=== PATIENT | female | born 1945 | race Caucasian/White ===

== ENCOUNTER 2020-12-09 13:00 | Inpatient (IN) | payer MEDICARE, OTHER ==
[~2020-12-09] VITALS: Ht 160 cm; Wt 51.2 kg
[2020-12-09 13:38] VITALS: BP 104/63
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
[2020-12-09] MEDS ORDERED: OMEP20CA16 PO (14:47)
[2020-12-09] MEDS ORDERED: QUET25TA5 PO (14:47)
[2020-12-09] MEDS ORDERED: MEMA10TA PO (14:47)
[2020-12-09] MEDS ORDERED: ATOR40TA59 PO (14:47)
[2020-12-09] MEDS ORDERED: GALA24CA7 PO (14:47)
[2020-12-09] MEDS ORDERED: ISOS30TA68 PO (14:47)
[2020-12-09 15:14] VITALS: BP 108/65
--- NOTE | 2020-12-09 16:21 | EKG ---
[address] [address] Test Date: 2020-12-09 Test Time: 16:12:50 Pat Name: FELIPE LAMB Department: Room: 111 A Gender: F [employer] Faculty: : [id number] Requested By: KAIT GARCIA Order Number: [id number] Reading MD: Measurements Intervals [place] Rate: 81 P: 90 [place]: 138 QRS: 115 QRSD: 68 T: 62 QT: 360 QTc: 419 Interpretive Statements SINUS RHYTHM ABNORMAL RIGHT AXIS DEVIATION LOW LIMB LEAD VOLTAGE QRS(T) CONTOUR ABNORMALITY CONSISTENT WITH ANTEROSEPTAL INFARCT AGE UNDETERMINED ABNORMAL ECG RI6.01 No previous ECG available for comparison
[2020-12-09 17:50] LABS: BASO % 1 % (0-3); EOS # 0.1 x10^3/uL (0.0-0.7); EOS % 2 % (0-3); HEMATOCRIT 44.3 % (36.0-47.0); HEMOGLOBIN 14.7 g/dL (12.0-15.5); LYMPH # 1.8 x10^3/uL (1.0-4.8); LYMPH % 31 % (24-48); MEAN CORPUSCULAR HEMOGLOBIN 30 pg (25-35); MEAN CORPUSCULAR HGB CONC 33 g/dL (31-37); MEAN CORPUSCULAR VOLUME 91 fL (79-100); MONO # 0.5 x10^3/uL (0.0-1.1); MONO % 9 % (0-9); NEUT # 3.3 x10^3uL (1.8-7.7); NEUT % 57 % (31-73); PLATELET COUNT 220 x10^3/uL (140-400); RED BLOOD COUNT 4.85 x10^6/uL (3.50-5.40); RED CELL DISTRIBUTION WIDTH 13.9 % (11.5-14.5); WHITE BLOOD COUNT 5.7 x10^3/uL (4.0-11.0)
[2020-12-09 17:51] LABS: BILIRUBIN,URINE NEG (NEG); CLARITY,URINE CLEAR; COLOR,URINE YELLOW; GLUCOSE,URINE NEG (NEG)
[2020-12-09 17:52] LABS: BACTERIA,URINE 0 /HPF (0-FEW); NITRITE,URINE NEG (NEG); RBC,URINE 0 /HPF (0-2); SQUAMOUS EPITHELIAL CELL,UR OCC /LPF
[2020-12-09 18:00] LABS: ALBUMIN 3.7 g/dL (3.4-5.0); ALBUMIN/GLOBULIN RATIO 1.2 (1.0-1.7); CALCIUM 8.7 mg/dL (8.5-10.1); GFR 54.3; MAGNESIUM 1.9 mg/dL (1.8-2.4); POTASSIUM 3.8 mmol/L (3.5-5.1); TOTAL BILIRUBIN 0.3 mg/dL (0.2-1.0); TOTAL PROTEIN 6.9 g/dL (6.4-8.2)
[2020-12-09 19:48] VITALS: BP 102/59
[2020-12-10 05:34] VITALS: BP 119/66
--- NOTE | 2020-12-10 12:02 | PN ---
DATE: 12/10/2020 ATTENDING PHYSICIAN: Dr. Garcia. SUBJECTIVE: The patient is confused. She is up and ambulating and wandering around. We have to have bed alarms available. The coronavirus swab is still pending. LABORATORY DATA: Hemoglobin is normal at 14.7 grams per deciliter, white count 5700. Electrolytes, BUN and creatinine all within normal range. Transaminases and liver panel was normal. OBJECTIVE: VITAL SIGNS: Blood pressure is 119/66. She is afebrile, heart rate and oxygen saturation adequate. HEENT: Head is without trauma. Pupils are reactive. Sclerae nonicteric. Oropharynx clear. NECK: Supple, no bruits. LUNGS: Clear. CARDIOVASCULAR: Showed regular heart tones. No gallops. ABDOMEN: Soft. EXTREMITIES: Without edema. NEUROLOGIC: Profound confusion. She has been wandering around. She has no insight. ASSESSMENT: 1. A 75-year-old female with profound dementia with associated agitation and behavior issues. 2. Chronic obstructive pulmonary disease. 3. Type 2 diabetes. 4. Hyperlipidemia. PLAN: 1. Await COVID-19 coronavirus swab. 2. Diet as tolerated. 3. Transfer to the [facility] Unit when the coronavirus swab is available. KAIT GARCIA MD DR: DENNISE/eli JOB#: [id number] / [id number]
[2020-12-10 15:33] VITALS: BP 143/76
[2020-12-10] MEDS ORDERED: MEMANTINE 10 MG TABLET. PO SCH (21:00)
[2020-12-10] MEDS ORDERED: QUEtiapine 25 MG TABLET. PO SCH (21:00)
[2020-12-11 01:09] LABS: HEMOGLOBIN A1C 5.9 % (4.8-5.6)
[2020-12-11] MEDS ORDERED: PANTOPRAZOLE 40 MG TABLET. PO SCH (07:30)
--- NOTE | 2020-12-11 08:59 | DS ---
DATE OF DISCHARGE: 12/10/2020 ATTENDING PHYSICIAN: Dr. Garcia. FINAL DISCHARGE DIAGNOSES: 1. A 75-year-old female with profound dementia with agitation and behavioral issues. 2. Chronic obstructive pulmonary disease. 3. Type 2 diabetes. 4. Hyperlipidemia. HISTORY AND PHYSICAL: The patient is a 75-year-old female slated to go to the [facility]. She was admitted to the medical floor for screening of coronavirus infection. PHYSICAL EXAMINATION: Please see the dictated note. PERTINENT LABORATORY AND X-RAY STUDIES: Serology of coronavirus was negative. Hemoglobin stable at 14.7 g/dL with a white count of 5700. Electrolytes: BUN and creatinine all within normal range. Hemoglobin A1c was quite good at 5.9. Transaminases and lipid panel were unremarkable. COURSE IN THE HOSPITAL: The patient was admitted to the medical floor. Home meds were restarted. Diet was advanced. She kept wandering around. She was profoundly demented. We had to place bed alarms on. By the second hospital day, she was ambulating well. Her coronavirus swab was negative. She was discharged to the [facility]. Her home meds are unchanged, they include the following: She will continue her Lipitor, Razadyne, Imdur, Namenda, omeprazole, and Seroquel dose is unchanged. Her prognosis is fair. She was discharged from our hospital in stable condition with explicit instructions and followup care at the [facility]. KAIT GARCIA MD DR: DENNISE/eli JOB#: [id number] / [id number]
[2020-12-11] MEDS ORDERED: ATORVASTATIN CALCIUM 20 MG TABLET PO SCH (09:00)
[2020-12-11] MEDS ORDERED: ISOSORBIDE MONONITRATE ER 30 MG TAB.ER.24H PO SCH (09:00)
[2020-12-11] MEDS ORDERED: GALANTAMINE 24 MG PO SCH (09:00)
== END 2020-12-10 21:00 | DRG 191 ==
LOC: 1 SOUTH 13:00
PROVIDERS: ADMIT Hospitalist; ATTEND Hospitalist
DX: J44.9 Chronic obstructive pulmonary disease, unspecified (principal); F03.91 Unspecified dementia, unspecified severity, with behavioral disturbance; E78.5 Hyperlipidemia, unspecified; Z20.822 Contact with and (suspected) exposure to COVID-19; Z80.0 Family history of malignant neoplasm of digestive organs; Z85.038 Personal history of other malignant neoplasm of large intestine; Z87.891 Personal history of nicotine dependence; K21.9 Gastro-esophageal reflux disease without esophagitis; Z91.83 Wandering in diseases classified elsewhere; E11.51 Type 2 diabetes mellitus with diabetic peripheral angiopathy without gangrene; Z79.4 Long term (current) use of insulin
CPT/HCPCS: 36415; 80053; 80061; 81001; 82306; 82607; 83036; 83735; 84443; 85025; 85379; 86592; 87086; 93005; U0003

== ENCOUNTER 2020-12-10 21:00 | Inpatient (IN) | payer MEDICARE, OTHER ==
[~2020-12-10] VITALS: Ht 160 cm; Wt 51.4 kg
[~2020-12-10 21:00] MED LIST: ATOR40TA59 PO; GALA24CA7 PO; ISOS30TA68 PO; MEMA10TA PO; OMEP20CA16 PO; QUET25TA5 PO
[2020-12-10 22:42] VITALS: BP 112/79
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
[2020-12-10] MEDS ORDERED: METHYL SALICYLATE/MENTHOL TOPICAL OINTMENT 57GM TUBE. TP PRN (23:45)
[2020-12-10] MEDS ORDERED: MAG HYDROX/AL HYDROX/SIMETH 30 ML ORAL.SUSP PO PRN (23:45)
[2020-12-10] MEDS ORDERED: MAGNESIUM HYDROXIDE 2,400 MG/30 ML ORAL.SUSP. PO PRN (23:45)
[2020-12-11 06:07] VITALS: BP 119/58
[2020-12-11] MEDS: MEMANTINE 10 MG TABLET. PO SCH ×2 (08:33→20:34)
[2020-12-11] MEDS: ISOSORBIDE MONONITRATE ER 30 MG TAB.ER.24H PO SCH (08:33)
[2020-12-11] MEDS: PANTOPRAZOLE 40 MG TABLET. PO SCH (08:33)
[2020-12-11] MEDS: GALANTAMINE 24 MG PO SCH (09:00)
[2020-12-11 09:47] LABS: BASO % 0 % (0-3); EOS # 0.1 x10^3/uL (0.0-0.7); EOS % 2 % (0-3); HEMATOCRIT 44.4 % (36.0-47.0); HEMOGLOBIN 14.6 g/dL (12.0-15.5); LYMPH % 31 % (24-48); MEAN CORPUSCULAR HEMOGLOBIN 30 pg (25-35); MEAN CORPUSCULAR HGB CONC 33 g/dL (31-37); MEAN CORPUSCULAR VOLUME 92 fL (79-100); MONO # 0.5 x10^3/uL (0.0-1.1); MONO % 8 % (0-9); NEUT # 3.7 x10^3uL (1.8-7.7); NEUT % 59 % (31-73); PLATELET COUNT 204 x10^3/uL (140-400); RED BLOOD COUNT 4.85 x10^6/uL (3.50-5.40); RED CELL DISTRIBUTION WIDTH 14.2 % (11.5-14.5); WHITE BLOOD COUNT 6.4 x10^3/uL (4.0-11.0)
[2020-12-11 10:26] LABS: ALBUMIN 3.9 g/dL (3.4-5.0); ALBUMIN/GLOBULIN RATIO 1.2 (1.0-1.7); CREATININE 0.9 mg/dL (0.6-1.0); GFR 61.4; MAGNESIUM 2.3 mg/dL (1.8-2.4); POTASSIUM 3.6 mmol/L (3.5-5.1); TOTAL BILIRUBIN 0.7 mg/dL (0.2-1.0); TOTAL PROTEIN 7.2 g/dL (6.4-8.2)
[2020-12-11 16:10] VITALS: BP 115/60
[2020-12-11 16:34] LABS: THYROID STIM HORMONE (TSH) 1.614 uIU/mL (0.358-3.740)
--- NOTE | 2020-12-11 16:56 | NUR ---
Pt up wandering in halls. Pleasantly confused. Meds taken in pudding. Redirectable.
[2020-12-11] MEDS: ATORVASTATIN CALCIUM 20 MG TABLET PO SCH (20:35)
[2020-12-11] MEDS: QUEtiapine 25 MG TABLET. PO SCH (20:35)
[2020-12-11] MEDS ORDERED: MIRTAZAPINE 7.5 MG TABLET. PO SCH (21:00)
--- NOTE | 2020-12-11 21:06 | PDOC ---
Exam Note: Jaquan Note: Please also refer to the separate dictated note~for this date of service dictated separately.~Patient seen individually. Discussed the patient with Nursing staff reviewed the chart.~Reviewed interim history and current functioning. Reviewed vital signs,~Labs/ Radiology~and current medications noted below. Continue current treatment with the changes noted in the dictated addendum note Assessment: Vital Signs/I&O: Vital Signs Date Time Temp Pulse Resp B/P (MAP) Pulse Ox O2 Delivery O2 Flow Rate FiO2 12/11/20 16:10 98.0 78 18 115/60 (78) 97 Room Air Labs: Laboratory Tests Test 12/11/20 08:45 White Blood Count 6.4 x10^3/uL (4.0-11.0) Red Blood Count 4.85 x10^6/uL (3.50-5.40) Hemoglobin 14.6 g/dL (12.0-15.5) Hematocrit 44.4 % (36.0-47.0) Mean Corpuscular Volume 92 fL (79-100) Mean Corpuscular Hemoglobin 30 pg (25-35) Mean Corpuscular Hemoglobin Concent 33 g/dL (31-37) Red Cell Distribution Width 14.2 % (11.5-14.5) Platelet Count 204 x10^3/uL (140-400) Neutrophils (%) (Auto) 59 % (31-73) Lymphocytes (%) (Auto) 31 % (24-48) Monocytes (%) (Auto) 8 % (0-9) Eosinophils (%) (Auto) 2 % (0-3) Basophils (%) (Auto) 0 % (0-3) Neutrophils # (Auto) 3.7 x10^3uL (1.8-7.7) Lymphocytes # (Auto) 2.0 x10^3/uL (1.0-4.8) Monocytes # (Auto) 0.5 x10^3/uL (0.0-1.1) Eosinophils # (Auto) 0.1 x10^3/uL (0.0-0.7) Basophils # (Auto) 0.0 x10^3/uL (0.0-0.2) D-Dimer (Cass) 2.97 mg/L (0.00-0.50) H Sodium Level 145 mmol/L (136-145) Potassium Level 3.6 mmol/L (3.5-5.1) Chloride Level 107 mmol/L (98-107) Carbon Dioxide Level 29 mmol/L (21-32) Anion Gap 9 (6-14) Blood Urea Nitrogen 17 mg/dL (7-20) Creatinine 0.9 mg/dL (0.6-1.0) Estimated GFR (Cockcroft-Gault) 61.4 BUN/Creatinine Ratio 19 (6-20) Glucose Level 91 mg/dL (70-99) Calcium Level 9.0 mg/dL (8.5-10.1) Magnesium Level 2.3 mg/dL (1.8-2.4) Iron Level 107 ug/dL (50-170) Total Iron Binding Capacity 261 ug/dL (250-450) Iron Saturation 41 % (15-34) H Total Bilirubin 0.7 mg/dL (0.2-1.0) Aspartate Amino Transferase (AST) 26 U/L (15-37) Alanine Aminotransferase (ALT) 41 U/L (14-59) Alkaline Phosphatase 114 U/L (46-116) Total Protein 7.2 g/dL (6.4-8.2) Albumin 3.9 g/dL (3.4-5.0) Albumin/Globulin Ratio 1.2 (1.0-1.7) Triglycerides Level 69 mg/dL (0-150) Cholesterol Level 128 mg/dL (0-200) LDL Cholesterol, Calculated 60 mg/dL (0-100) VLDL Cholesterol, Calculated 13 mg/dL (0-40) Non-HDL Cholesterol Calculated 73 mg/dL (0-129) HDL Cholesterol 55 mg/dL (40-60) Cholesterol/HDL Ratio 2.0 Thyroid Stimulating Hormone (TSH) 1.614 uIU/mL (0.358-3.740) Current Medications: Meds: Current Medications Medications (Trade) Dose Ordered Sig/Ashish Route PRN Reason Start Time Stop Time Status Last Admin Dose Admin Olanzapine (ZyPREXA ZYDIS) 2.5 mg PRN Q2HR PRN PO PSYCHOSIS 12/10/20 22:45 12/11/20 20:36 Galantamine Hydrobromide (Razadyne Er) 24 mg DAILY PO 12/11/20 09:00 12/11/20 09:00 Isosorbide Mononitrate (Imdur) 30 mg DAILY PO 12/11/20 09:00 12/11/20 08:33 Memantine (Namenda) 10 mg BID PO 12/11/20 09:00 12/11/20 20:34 Quetiapine Fumarate (SEROquel) 75 mg QHS PO 12/11/20 21:00 12/11/20 20:35 Atorvastatin Calcium (Lipitor) 40 mg QHS PO 12/11/20 21:00 12/11/20 20:35 Pantoprazole Sodium (Protonix) 40 mg DAILYAC PO 12/11/20 07:30 12/11/20 08:33 Mirtazapine (Remeron) 7.5 mg QHS PO 12/11/20 21:00 12/11/20 20:35 I have reviewed the current psychotropics carefully including drug interactions. Risk benefit ratio favors no change other than as noted in my dictated progress note. Diagnosis: Problems: (1) Major neurocognitive disorder (2) Dementia with behavioral disturbance ION NAVARRETE MD Dec 11, 2020 21:06
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
--- NOTE | 2020-12-11 21:38 | PN ---
DATE: 12/11/2020 PSYCHIATRIC PROGRESS NOTE This note covers elements not covered in my initial note 12/11/2020. SUBJECTIVE: I met with the patient evening of 12/11/2020 on telehealth rounds. Discussed with YELITZA Dailey. The patient slept 5-1/4 hours previous night, was anxious, restless, remains confused. She is totally oblivious of her surroundings. REVIEW OF SYSTEMS: No CV, , pulmonary, eye, ENT system symptoms on review. Reliability poor. MENTAL STATUS EXAM: Oriented to herself. Insight, judgment, recent and remote memory, attention, concentration, fund of knowledge poor, consistent with her diagnosis. IMPRESSION: Major neurocognitive disorder, Alzheimer, vascular with delusion, depression, behavioral disturbance; anxiety disorder, unspecified; impulse control disorder, unspecified. Rest unchanged from initial note. PLAN: Continue current psychotropic. Start Remeron 7.5 mg p.o. at bedtime for insomnia and trazodone 50 mg at bedtime p.r.n., may repeat x 1 for insomnia. May consider adding an SSRI agent, perhaps Zoloft and adjusting Seroquel as clinically indicated. MAN Mariusz NAVARRETE MD DR: SHARA/eli JOB#: [id number] / [id number]
[2020-12-11] MEDS: traZODone 50 MG TABLET. PO PRN ×2 (22:32→23:45)
--- NOTE | 2020-12-11 23:26 | NUR ---
Pt highly disorganized this evening. Restless, wandering and intrusive. Compliant with whole medications. PRN Zydis and Trazodone administered with little effect. Pt currently restless in bed repeatedly setting off alarm. Will continue to monitor.
[2020-12-12 00:11] LABS: THYROXINE 7.3 ug/dL (4.5-12.0)
[2020-12-12 03:06] LABS: HEMOGLOBIN A1C 5.8 % (4.8-5.6)
[2020-12-12 06:34] VITALS: BP 137/72
[2020-12-12] MEDS: ISOSORBIDE MONONITRATE ER 30 MG TAB.ER.24H PO SCH (07:54)
[2020-12-12] MEDS: MEMANTINE 10 MG TABLET. PO SCH ×2 (07:54→20:26)
[2020-12-12] MEDS: PANTOPRAZOLE 40 MG TABLET. PO SCH (07:54)
[2020-12-12] MEDS: GALANTAMINE 24 MG PO SCH (07:54)
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
--- NOTE | 2020-12-12 13:12 | NUR ---
PATIENT IS ON A HALLWAY THIS AM UPON ASSESSMENT, RESTLESS, WONDERING TO OTHER RESIDENTS ROOMS, CONFUSED BUT WAS EASY TO REDIRECT. PATIENT TOOK HER MEDS CRUSHED IN PUDDING, PATIENT TOOK A SHOWER WITH ASSIST X1. PATIENT IS CURRENTLY ASLEEP IN A BED.
[2020-12-12 15:20] VITALS: BP 94/71
[2020-12-12] MEDS: ATORVASTATIN CALCIUM 20 MG TABLET PO SCH (20:26)
[2020-12-12] MEDS: QUEtiapine 25 MG TABLET. PO SCH (20:26)
[2020-12-12] MEDS: traZODone 50 MG TABLET. PO PRN (20:28)
[2020-12-12] MEDS: MIRTAZAPINE 15 MG TABLET PO SCH (20:28)
--- NOTE | 2020-12-12 20:45 | EKG ---
[address] [address] Test Date: 2020-12-11 Test Time: 05:52:45 Pat Name: FELIPE LAMB Department: Room: [address] [place] [address] Gender: F [employer]: : 1945 Requested By: ION NAVARRETE Order Number: [id number] Reading MD: Measurements Intervals [place] Rate: 60 P: AR: QRS: 86 QRSD: 74 T: 62 QT: 412 QTc: 412 Interpretive Statements ATRIAL FLUTTER LOW LIMB LEAD VOLTAGE QRS(T) CONTOUR ABNORMALITY CONSISTENT WITH ANTEROSEPTAL INFARCT AGE UNDETERMINED ABNORMAL ECG RI6.01 Compared to ECG 12/09/2020 16:12:50 Sinus rhythm no longer present Right-axis deviation no longer present Myocardial infarct finding still present
--- NOTE | 2020-12-12 21:35 | PDOC ---
Exam Note: Jaquan Note: Please also refer to the separate dictated note~for this date of service dictated separately.~Patient seen individually. Discussed the patient with Nursing staff reviewed the chart.~Reviewed interim history and current functioning. Reviewed vital signs,~Labs/ Radiology~and current medications noted below. Continue current treatment with the changes noted in the dictated addendum note Assessment: Vital Signs/I&O: Vital Signs Date Time Temp Pulse Resp B/P (MAP) Pulse Ox O2 Delivery O2 Flow Rate FiO2 12/12/20 15:20 97.4 87 16 94/71 (79) 95 12/12/20 06:34 Room Air I & O 12/11/20 12/11/20 12/12/20 15:00 23:00 07:00 Intake Total 560 ml 120 ml 100 ml Balance 560 ml 120 ml 100 ml Current Medications: Meds: Current Medications Medications (Trade) Dose Ordered Sig/Ashish Route PRN Reason Start Time Stop Time Status Last Admin Dose Admin Mirtazapine (Remeron) 15 mg QHS PO 12/12/20 21:00 12/12/20 20:28 I have reviewed the current psychotropics carefully including drug interactions. Risk benefit ratio favors no change other than as noted in my dictated progress note. Diagnosis: Problems: (1) Dementia with behavioral disturbance (2) Major neurocognitive disorder (3) Dementia in Alzheimer's disease with depression (4) Dementia in Alzheimer's disease with delusions (5) Dementia, vascular, with depression (6) Dementia, vascular, with delusions (7) Anxiety disorder, unspecified (8) Impulse control disorder, unspecified ION NAVARRETE MD Dec 12, 2020 21:35
--- NOTE | 2020-12-12 23:57 | NUR ---
Pt wandering unit this evening. Continues to be restless, intrusive and disorganized. Pt pleasant when approached, A/O to name only. Compliant with crushed medications. No agitation or aggression.
[2020-12-13 06:22] VITALS: BP 110/74
[2020-12-13] MEDS: PANTOPRAZOLE 40 MG TABLET. PO SCH (07:41)
[2020-12-13] MEDS: MEMANTINE 10 MG TABLET. PO SCH ×2 (07:42→20:22)
[2020-12-13] MEDS: GALANTAMINE 24 MG PO SCH (07:42)
[2020-12-13] MEDS: ISOSORBIDE MONONITRATE ER 30 MG TAB.ER.24H PO SCH (07:42)
--- NOTE | 2020-12-13 08:53 | PDOC ---
Exam Note: Jaquan Note: This note is a late entry for 12/12/2020 covers elements not covered in my initial note. Subjective: The patient was seen face to face in the morning of 12/12/2020 for a treatment team meeting with Sangita Martin, Edwige Hartley and Melissa (social science manager), Lashonda Jackson, activity therapy and Jessica TORRE, reviewed the chart. The patients daughter Alma also attended the meeting. The patient slept 2-3/4 hours previous night. Overall she remains confused, anxious, restless, distractible. Her daughter gave a very detailed history of a progressive memory loss and daughter has been caring for her at the home along with help from her sister but now it appears is not feasible given the extent of the patients agitation and dementia. They live in the [facility] and looking for nursing placement but have to secure appropriate funding. Review of Systems: No CV, , pulmonary, eye, ENT system symptoms on review. Reliability poor. Mental Status Exam: The patient is oriented to herself. Insight and judgment, recent and remote memory, attention and concentration, fund of knowledge is poor consistent with her diagnosis. Laboratory Data: Reviewed. Impression: Major neurocognitive disorder Alzheimer vascular with delusion, depression, behavioral disturbance. Anxiety disorder unspecified. Impulse control disorder unspecified. Plan: No change from initial note. She still is not sleeping well despite Remeron and trazodone. We will increase Remeron to 15 mg h.s. Continue Razadyne ER, Namenda along with Seroquel but we may split the Seroquel during the day and consider amitriptyline for insomnia if this persists despite adjustment in Remeron. I do not see a clear reason for using Depakote as a mood stabilizer for now but we will keep an open mind. Assessment: Vital Signs/I&O: Vital Signs Date Time Temp Pulse Resp B/P (MAP) Pulse Ox O2 Delivery O2 Flow Rate FiO2 12/13/20 07:42 71 110/74 12/13/20 06:22 97.5 16 94 12/12/20 06:34 Room Air I & O 12/12/20 12/12/20 12/13/20 15:00 23:00 07:00 Intake Total 540 ml 460 ml Balance 540 ml 460 ml Current Medications: Meds: Current Medications Medications (Trade) Dose Ordered Sig/Ashish Route PRN Reason Start Time Stop Time Status Last Admin Dose Admin Olanzapine (ZyPREXA ZYDIS) 2.5 mg PRN Q2HR PRN PO PSYCHOSIS 12/10/20 22:45 12/11/20 20:36 Acetaminophen (Tylenol) 650 mg PRN Q6HRS PRN PO MILD PAIN / TEMP > 100.3'F 12/10/20 23:45 Multi-Ingredient Ointment (Analgesic [place]) 1 malik PRN QID PRN TP MUSCLE PAIN 12/10/20 23:45 Al Hydroxide/Mg Hydroxide (Mylanta Plus Xs) 15 ml PRN AFTMEALHC PRN PO DYSPEPSIA 12/10/20 23:45 Magnesium Hydroxide (Milk Of Magnesia) 2,400 mg PRN QHS PRN PO CONSTIPATION 12/10/20 23:45 12/13/20 07:42 Galantamine Hydrobromide (Razadyne Er) 24 mg DAILY PO 12/11/20 09:00 12/13/20 07:42 Isosorbide Mononitrate (Imdur) 30 mg DAILY PO 12/11/20 09:00 12/13/20 07:42 Memantine (Namenda) 10 mg BID PO 12/11/20 09:00 12/13/20 07:42 Quetiapine Fumarate (SEROquel) 75 mg QHS PO 12/11/20 21:00 12/12/20 20:26 Atorvastatin Calcium (Lipitor) 40 mg QHS PO 12/11/20 21:00 12/12/20 20:26 Pantoprazole Sodium (Protonix) 40 mg DAILYAC PO 12/11/20 07:30 12/13/20 07:41 Mirtazapine (Remeron) 7.5 mg QHS PO 12/11/20 21:00 12/12/20 17:36 DC 12/11/20 20:35 Trazodone HCl (Desyrel) 50 mg PRN QHS PRN PO INSOMNIA, MAY REPEAT X1 12/11/20 18:30 12/12/20 20:28 Mirtazapine (Remeron) 15 mg QHS PO 12/12/20 21:00 12/12/20 20:28 Current Medications Medications (Trade) Dose Ordered Sig/Ashish Route PRN Reason Start Time Stop Time Status Last Admin Dose Admin Mirtazapine (Remeron) 15 mg QHS PO 12/12/20 21:00 12/12/20 20:28 I have reviewed the current psychotropics carefully including drug interactions. Risk benefit ratio favors no change other than as noted in my dictated progress note. Diagnosis: Problems: (1) Dementia with behavioral disturbance (2) Major neurocognitive disorder (3) Impulse control disorder, unspecified (4) Anxiety disorder, unspecified (5) Dementia, vascular, with depression (6) Dementia, vascular, with delusions (7) Dementia in Alzheimer's disease with depression (8) Dementia in Alzheimer's disease with delusions ION NAVARRETE MD Dec 13, 2020 08:53
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
--- NOTE | 2020-12-13 11:20 | NUR ---
ACTIVITY THERAPY ASSESSMENT Completed based on observation, information from daughter, Alma, during treatment team on 12/12/2020, and interview. Pt. was sitting in a chair in her room, wrapped in a couple blankets. She was pleasant in greeting SOCIAL AND POLITICAL STUDIES PROFESSOR and confirmed she goes by "Natacha" and was indeed cold. When asked her age, she said "pretty old" with a smile. She did not know her date of but talked about wanting some coffee. Pt was able to better answer yes/no questions throughout interview. Using this technique, she indicated she does like TV, reading and exercises but was unable to provide the type of music she enjoys. Pt's daughter shared that Pt has collected (Rita Dolls) in the past and said she has always been the "nosey" type. Pt's daughter tried to give Pt. a fidget packet with pictures; however, she said Pt. tossed that to the side and was not interested. Pt. closed her eyes during interview and nodded her head yes when asked if she was tired. SOCIAL AND POLITICAL STUDIES PROFESSOR thanked Pt. and Pt. said "you're welcome, thank you" as SOCIAL AND POLITICAL STUDIES PROFESSOR left. Pt. often wanders the unit, needs assistance with direction, and falls asleep when sitting down. She does not engage in conversations and needs hand over hand/ physical assistance to help sit and stand from a chair. She has been generally calm but confused on the unit. Initial goal aimed to increase engagement/ sensory stimulation: Pt. will participate in at least five individual Activity Therapy sessions before discharge. Addendum: 12/20/20 at 1022 by MCKAYLA FANG ACT Goal changed 12/19: Pt. will participate in at least five individual or Activity Therapy group sessions before discharge
[2020-12-13] MEDS: ACETAMINOPHEN 325 MG TABLET PO PRN (15:39)
[2020-12-13 15:52] VITALS: BP 109/67
--- NOTE | 2020-12-13 18:31 | NUR ---
Patient sitting in chair in room at time of assessment. Eating breakfast. Patient takes medications crushed in one bite of vanilla pudding with no problems. Patient is alert. Patient is confused and forgetful and not oriented to place or time. Patient is calm and cooperative. There are no further concerns at this time.
[2020-12-13] MEDS: MIRTAZAPINE 15 MG TABLET PO SCH (20:22)
[2020-12-13] MEDS: QUEtiapine 25 MG TABLET. PO SCH (20:22)
[2020-12-13] MEDS: ATORVASTATIN CALCIUM 20 MG TABLET PO SCH (20:22)
--- NOTE | 2020-12-13 21:00 | PDOC ---
Exam Note: Jaquan Note: Please also refer to the separate dictated note~for this date of service dictated separately.~Patient seen individually. Discussed the patient with Nursing staff reviewed the chart.~Reviewed interim history and current functioning. Reviewed vital signs,~Labs/ Radiology~and current medications noted below. Continue current treatment with the changes noted in the dictated addendum note Assessment: Vital Signs/I&O: Vital Signs Date Time Temp Pulse Resp B/P (MAP) Pulse Ox O2 Delivery O2 Flow Rate FiO2 12/13/20 15:52 97.7 84 16 109/67 (81) 95 12/12/20 06:34 Room Air I & O 12/12/20 12/12/20 12/13/20 15:00 23:00 07:00 Intake Total 540 ml 460 ml Balance 540 ml 460 ml Current Medications: Meds: Current Medications Medications (Trade) Dose Ordered Sig/Ashish Route PRN Reason Start Time Stop Time Status Last Admin Dose Admin Olanzapine (ZyPREXA ZYDIS) 2.5 mg PRN Q2HR PRN PO PSYCHOSIS 12/10/20 22:45 12/11/20 20:36 Acetaminophen (Tylenol) 650 mg PRN Q6HRS PRN PO MILD PAIN / TEMP > 100.3'F 12/10/20 23:45 12/13/20 15:39 Multi-Ingredient Ointment (Analgesic Watts) 1 malik PRN QID PRN TP MUSCLE PAIN 12/10/20 23:45 Al Hydroxide/Mg Hydroxide (Mylanta Plus Xs) 15 ml PRN AFTMEALHC PRN PO DYSPEPSIA 12/10/20 23:45 Magnesium Hydroxide (Milk Of Magnesia) 2,400 mg PRN QHS PRN PO CONSTIPATION 12/10/20 23:45 12/13/20 07:42 Galantamine Hydrobromide (Razadyne Er) 24 mg DAILY PO 12/11/20 09:00 12/13/20 07:42 Isosorbide Mononitrate (Imdur) 30 mg DAILY PO 12/11/20 09:00 12/13/20 07:42 Memantine (Namenda) 10 mg BID PO 12/11/20 09:00 12/13/20 20:22 Quetiapine Fumarate (SEROquel) 75 mg QHS PO 12/11/20 21:00 12/13/20 20:22 Atorvastatin Calcium (Lipitor) 40 mg QHS PO 12/11/20 21:00 12/13/20 20:22 Pantoprazole Sodium (Protonix) 40 mg DAILYAC PO 12/11/20 07:30 12/13/20 07:41 Mirtazapine (Remeron) 7.5 mg QHS PO 12/11/20 21:00 12/12/20 17:36 DC 12/11/20 20:35 Trazodone HCl (Desyrel) 50 mg PRN QHS PRN PO INSOMNIA, MAY REPEAT X1 12/11/20 18:30 12/12/20 20:28 Mirtazapine (Remeron) 15 mg QHS PO 12/12/20 21:00 12/13/20 20:22 I have reviewed the current psychotropics carefully including drug interactions. Risk benefit ratio favors no change other than as noted in my dictated progress note. Diagnosis: Problems: (1) Dementia with behavioral disturbance (2) Major neurocognitive disorder (3) Impulse control disorder, unspecified (4) Anxiety disorder, unspecified (5) Dementia, vascular, with depression (6) Dementia, vascular, with delusions (7) Dementia in Alzheimer's disease with depression (8) Dementia in Alzheimer's disease with delusions ION NAVARRETE MD Dec 13, 2020 21:00
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
[2020-12-14 06:00] VITALS: BP 105/67
[2020-12-14] MEDS: PANTOPRAZOLE 40 MG TABLET. PO SCH (08:02)
[2020-12-14] MEDS: MEMANTINE 10 MG TABLET. PO SCH ×2 (08:02→21:19)
[2020-12-14] MEDS: ISOSORBIDE MONONITRATE ER 30 MG TAB.ER.24H PO SCH (08:04)
[2020-12-14] MEDS: GALANTAMINE 24 MG PO SCH (08:07)
--- NOTE | 2020-12-14 08:41 | PDOC ---
Exam Note: Jaquan Note: This note is a late entry for 12/13/2020 covers elements not covered in my initial note. Subjective: The patient was seen on telehealth rounds in the evening of 12/13/2020 with Andreina TORRE, reviewed the chart. The patient slept 7-1/2 hours previous night. She remains confused, wandering, takes medications without resistance. Review of Systems: No CV, , pulmonary, eye, ENT system symptoms on review. Reliability poor. Mental Status Exam: The patient is oriented to herself. Insight and judgment, recent and remote memory, attention and concentration, fund of knowledge is poor consistent with her diagnosis. Laboratory Data: Reviewed. Impression: Major neurocognitive disorder Alzheimer vascular with delusion, depression, behavioral disturbance. Anxiety disorder unspecified. Impulse control disorder unspecified. Plan: No change from initial note. Assessment: Vital Signs/I&O: Vital Signs Date Time Temp Pulse Resp B/P (MAP) Pulse Ox O2 Delivery O2 Flow Rate FiO2 12/14/20 08:04 54 105/67 12/14/20 06:00 97.3 16 96 12/12/20 06:34 Room Air I & O 12/13/20 12/13/20 12/14/20 15:00 23:00 07:00 Intake Total 320 ml 300 ml Balance 320 ml 300 ml Current Medications: Meds: Current Medications Medications (Trade) Dose Ordered Sig/Ashish Route PRN Reason Start Time Stop Time Status Last Admin Dose Admin Olanzapine (ZyPREXA ZYDIS) 2.5 mg PRN Q2HR PRN PO PSYCHOSIS 12/10/20 22:45 12/11/20 20:36 Acetaminophen (Tylenol) 650 mg PRN Q6HRS PRN PO MILD PAIN / TEMP > 100.3'F 12/10/20 23:45 12/13/20 15:39 Multi-Ingredient Ointment (Analgesic Jackson) 1 malik PRN QID PRN TP MUSCLE PAIN 12/10/20 23:45 Al Hydroxide/Mg Hydroxide (Mylanta Plus Xs) 15 ml PRN AFTMEALHC PRN PO DYSPEPSIA 12/10/20 23:45 Magnesium Hydroxide (Milk Of Magnesia) 2,400 mg PRN QHS PRN PO CONSTIPATION 12/10/20 23:45 12/13/20 07:42 Galantamine Hydrobromide (Razadyne Er) 24 mg DAILY PO 12/11/20 09:00 12/14/20 08:07 Isosorbide Mononitrate (Imdur) 30 mg DAILY PO 12/11/20 09:00 12/14/20 08:04 Memantine (Namenda) 10 mg BID PO 12/11/20 09:00 12/14/20 08:02 Quetiapine Fumarate (SEROquel) 75 mg QHS PO 12/11/20 21:00 12/13/20 20:22 Atorvastatin Calcium (Lipitor) 40 mg QHS PO 12/11/20 21:00 12/13/20 20:22 Pantoprazole Sodium (Protonix) 40 mg DAILYAC PO 12/11/20 07:30 12/14/20 08:02 Mirtazapine (Remeron) 7.5 mg QHS PO 12/11/20 21:00 12/12/20 17:36 DC 12/11/20 20:35 Trazodone HCl (Desyrel) 50 mg PRN QHS PRN PO INSOMNIA, MAY REPEAT X1 12/11/20 18:30 12/12/20 20:28 Mirtazapine (Remeron) 15 mg QHS PO 12/12/20 21:00 12/13/20 20:22 I have reviewed the current psychotropics carefully including drug interactions. Risk benefit ratio favors no change other than as noted in my dictated progress note. Diagnosis: Problems: (1) Anxiety disorder, unspecified (2) Impulse control disorder, unspecified (3) Major neurocognitive disorder (4) Dementia, vascular, with depression (5) Dementia, vascular, with delusions (6) Dementia in Alzheimer's disease with depression (7) Dementia in Alzheimer's disease with delusions ION NAVARRETE MD Dec 14, 2020 08:40
--- NOTE | 2020-12-14 10:13 | NUR ---
Pt has been up early this morning and wandering the halls, at times wandering into other pt's rooms. She ate breakfast and appeared to have an adequate appetite. She is complaint with medications and assessment. Unable to assess for SI/HI d/t delusions and disorganized thinking, however she is absent of either behaviors. She has made statements on multiple occasions about an unspecified individual only known as "her" or "she" who has apparently told her to go places on the unit...such as to leave a hallway that she was completely alone in. She is unable to specify if this individual is a VH, CAH or both. Will pass on to the next shift
[2020-12-14 16:45] VITALS: BP 87/48
[2020-12-14] MEDS: MIRTAZAPINE 15 MG TABLET PO SCH (21:20)
[2020-12-14] MEDS: traZODone 50 MG TABLET. PO PRN (21:22)
[2020-12-14] MEDS: QUEtiapine 100 MG TABLET. PO SCH (21:22)
[2020-12-14] MEDS: ATORVASTATIN CALCIUM 20 MG TABLET PO SCH (21:23)
--- NOTE | 2020-12-14 23:00 | NUR ---
Patient disorganized, wandering and intrusive early in the shift. Nurse talking to patient and patient thought nurse was her sister. Patient is oriented only to herself at this time and is unable to answer questions. Patient appears to be talking to herself while walking in the hallway. Patient resistive with PLASTIC MAKER's during HS cares. Compliant with medications, PRN trazodone given at HS with scheduled meds.
[2020-12-15 05:37] VITALS: BP 126/79
[2020-12-15] MEDS: MEMANTINE 10 MG TABLET. PO SCH ×2 (07:56→20:10)
[2020-12-15] MEDS: ISOSORBIDE MONONITRATE ER 30 MG TAB.ER.24H PO SCH (07:57)
[2020-12-15] MEDS: PANTOPRAZOLE 40 MG TABLET. PO SCH (07:57)
[2020-12-15] MEDS: GALANTAMINE 24 MG PO SCH (07:58)
--- NOTE | 2020-12-15 08:10 | PDOC ---
Exam Note: Jaquan Note: This note is a late entry for 12/14/2020 covers elements not covered in my initial note. Subjective: The patient was seen face to face in the evening of 12/14/2020 with Luz Elena RN, reviewed the chart. The patient slept 6 hours previous night. She remains confused with possible hallucinations per nursing report. She ambulates around the unit, wandering. Review of Systems: No CV, , pulmonary, eye, ENT system symptoms on review. Reliability poor. Mental Status Exam: The patient is oriented to herself. Insight and judgment, recent and remote memory, attention and concentration, fund of knowledge is poor consistent with her diagnosis. Laboratory Data: Reviewed. Impression: Major neurocognitive disorder Alzheimer vascular with delusion, depression, behavioral disturbance. Anxiety disorder unspecified. Impulse control disorder unspecified. Plan: No change from initial note. We will increase the Seroquel from 75 mg h.s. to 100 mg h.s. Make further adjustments as clinically indicated. Assessment: Vital Signs/I&O: Vital Signs Date Time Temp Pulse Resp B/P (MAP) Pulse Ox O2 Delivery O2 Flow Rate FiO2 12/15/20 07:57 58 126/79 12/15/20 05:37 96.8 18 96 12/12/20 06:34 Room Air I & O 12/14/20 12/14/20 12/15/20 15:00 23:00 07:00 Intake Total 260 ml 360 ml Balance 260 ml 360 ml Current Medications: Meds: Current Medications Medications (Trade) Dose Ordered Sig/Ashish Route PRN Reason Start Time Stop Time Status Last Admin Dose Admin Quetiapine Fumarate (SEROquel) 100 mg QHS PO 12/14/20 21:00 12/14/20 21:22 I have reviewed the current psychotropics carefully including drug interactions. Risk benefit ratio favors no change other than as noted in my dictated progress note. Diagnosis: Problems: (1) Dementia with behavioral disturbance (2) Major neurocognitive disorder (3) Impulse control disorder, unspecified (4) Anxiety disorder, unspecified (5) Dementia, vascular, with depression (6) Dementia, vascular, with delusions (7) Dementia in Alzheimer's disease with depression (8) Dementia in Alzheimer's disease with delusions ION NAVARRETE MD Dec 15, 2020 08:10
[2020-12-15 16:08] VITALS: BP 102/66
--- NOTE | 2020-12-15 17:05 | NUR ---
Pt has been complaint with assessment. During morning medication administration she dumped the whole cup in her mouth, then dug in her mouth with her fingers to pull out one pill and throw it in the garbage. This nurse had to pull the pill out of the garbage to identify it and pull a new one out of the Omnicell to administer (Namenda 10mg). She has been frequently wandering, even in other pt's rooms. Redirection (literally) is met with insults by pt on occasion. She is often disorganized in thought process, but has been absent of signs that she is distracted/distressed by VH/AH. She has been absent of SI/HI behaviors. Will pass on to the next shift.
[2020-12-15] MEDS: ATORVASTATIN CALCIUM 20 MG TABLET PO SCH (20:10)
[2020-12-15] MEDS: QUEtiapine 100 MG TABLET. PO SCH (20:10)
[2020-12-15] MEDS: MIRTAZAPINE 15 MG TABLET PO SCH (20:10)
[2020-12-15] MEDS: traZODone 50 MG TABLET. PO PRN (20:11)
--- NOTE | 2020-12-15 21:07 | PDOC ---
Exam Note: Jaquan Note: Please also refer to the separate dictated note~for this date of service dictated separately.~Patient seen individually. Discussed the patient with Nursing staff reviewed the chart.~Reviewed interim history and current functioning. Reviewed vital signs,~Labs/ Radiology~and current medications noted below. Continue current treatment with the changes noted in the dictated addendum note Assessment: Vital Signs/I&O: Vital Signs Date Time Temp Pulse Resp B/P (MAP) Pulse Ox O2 Delivery O2 Flow Rate FiO2 12/15/20 16:08 98.0 79 18 102/66 (78) 94 Room Air I & O 12/14/20 12/14/20 12/15/20 15:00 23:00 07:00 Intake Total 260 ml 360 ml Balance 260 ml 360 ml Current Medications: Meds: Current Medications Medications (Trade) Dose Ordered Sig/Ashish Route PRN Reason Start Time Stop Time Status Last Admin Dose Admin Olanzapine (ZyPREXA ZYDIS) 2.5 mg PRN Q2HR PRN PO PSYCHOSIS 12/10/20 22:45 12/11/20 20:36 Acetaminophen (Tylenol) 650 mg PRN Q6HRS PRN PO MILD PAIN / TEMP > 100.3'F 12/10/20 23:45 12/13/20 15:39 Multi-Ingredient Ointment (Analgesic Ballico) 1 malik PRN QID PRN TP MUSCLE PAIN 12/10/20 23:45 Al Hydroxide/Mg Hydroxide (Mylanta Plus Xs) 15 ml PRN AFTMEALHC PRN PO DYSPEPSIA 12/10/20 23:45 Magnesium Hydroxide (Milk Of Magnesia) 2,400 mg PRN QHS PRN PO CONSTIPATION 12/10/20 23:45 12/13/20 07:42 Galantamine Hydrobromide (Razadyne Er) 24 mg DAILY PO 12/11/20 09:00 12/15/20 07:58 Isosorbide Mononitrate (Imdur) 30 mg DAILY PO 12/11/20 09:00 12/15/20 07:57 Memantine (Namenda) 10 mg BID PO 12/11/20 09:00 12/15/20 20:10 Quetiapine Fumarate (SEROquel) 75 mg QHS PO 12/11/20 21:00 12/14/20 17:18 DC 12/13/20 20:22 Atorvastatin Calcium (Lipitor) 40 mg QHS PO 12/11/20 21:00 12/15/20 20:10 Pantoprazole Sodium (Protonix) 40 mg DAILYAC PO 12/11/20 07:30 12/15/20 07:57 Mirtazapine (Remeron) 7.5 mg QHS PO 12/11/20 21:00 12/12/20 17:36 DC 12/11/20 20:35 Trazodone HCl (Desyrel) 50 mg PRN QHS PRN PO INSOMNIA, MAY REPEAT X1 12/11/20 18:30 12/15/20 20:11 Mirtazapine (Remeron) 15 mg QHS PO 12/12/20 21:00 12/15/20 20:10 Quetiapine Fumarate (SEROquel) 100 mg QHS PO 12/14/20 21:00 12/15/20 20:10 I have reviewed the current psychotropics carefully including drug interactions. Risk benefit ratio favors no change other than as noted in my dictated progress note. Diagnosis: Problems: (1) Dementia with behavioral disturbance (2) Major neurocognitive disorder (3) Impulse control disorder, unspecified (4) Anxiety disorder, unspecified (5) Dementia, vascular, with depression (6) Dementia, vascular, with delusions (7) Dementia in Alzheimer's disease with depression (8) Dementia in Alzheimer's disease with delusions ION NAVARRETE MD Dec 15, 2020 21:07
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
[2020-12-16 05:53] VITALS: BP 117/74
--- NOTE | 2020-12-16 09:14 | NUR ---
VERONIKA received call and e-mail from Leonard Pineda, [facility] [phone], inquiring about Natacha. VERONIKA contacted Alma, DPOA/daughter, who confirmed she had spoke to Leonard and that it was alright for VERONIKA to disclose information to him. VERONIKA responded to Leonard's e-mail confirming that Natacha is a patient on [facility] for short term in patient treatment and that d/c plans are being discussed by family.
[2020-12-16] MEDS: MEMANTINE 10 MG TABLET. PO SCH ×2 (09:31→20:22)
[2020-12-16] MEDS: ISOSORBIDE MONONITRATE ER 30 MG TAB.ER.24H PO SCH (09:31)
[2020-12-16] MEDS: PANTOPRAZOLE 40 MG TABLET. PO SCH (09:31)
[2020-12-16] MEDS: GALANTAMINE 24 MG PO SCH (09:32)
--- NOTE | 2020-12-16 13:31 | NUR ---
Alma, daughter/POA, indicates she has submitted for Medicaid assistance on [place]'s behalf. Alma is to begin researching where she would like SW to forward referrals to for memory care placement. Alma will be involved in team meeting via phone on 12/19/20.
[2020-12-16 16:24] VITALS: BP 115/72
--- NOTE | 2020-12-16 18:00 | NUR ---
Pt up adl in halls. Pt very confused but has been compliant and pleasant.
[2020-12-16] MEDS: QUEtiapine 100 MG TABLET. PO SCH (20:21)
[2020-12-16] MEDS: traZODone 50 MG TABLET. PO PRN ×2 (20:21→21:54)
[2020-12-16] MEDS: MIRTAZAPINE 15 MG TABLET PO SCH (20:22)
[2020-12-16] MEDS: ATORVASTATIN CALCIUM 20 MG TABLET PO SCH (20:23)
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
[2020-12-17 05:55] VITALS: BP 128/61
[2020-12-17 07:50] LABS: BASO % 0 % (0-3); EOS # 0.2 x10^3/uL (0.0-0.7); EOS % 4 % (0-3); HEMATOCRIT 40.8 % (36.0-47.0); HEMOGLOBIN 13.6 g/dL (12.0-15.5); LYMPH # 1.8 x10^3/uL (1.0-4.8); LYMPH % 39 % (24-48); MEAN CORPUSCULAR HEMOGLOBIN 30 pg (25-35); MEAN CORPUSCULAR HGB CONC 33 g/dL (31-37); MEAN CORPUSCULAR VOLUME 91 fL (79-100); MONO # 0.4 x10^3/uL (0.0-1.1); MONO % 10 % (0-9); NEUT # 2.1 x10^3uL (1.8-7.7); NEUT % 47 % (31-73); PLATELET COUNT 188 x10^3/uL (140-400); RED BLOOD COUNT 4.48 x10^6/uL (3.50-5.40); RED CELL DISTRIBUTION WIDTH 13.7 % (11.5-14.5); WHITE BLOOD COUNT 4.6 x10^3/uL (4.0-11.0)
[2020-12-17 08:07] LABS: ALBUMIN 3.4 g/dL (3.4-5.0); ALBUMIN/GLOBULIN RATIO 1.1 (1.0-1.7); CALCIUM 8.7 mg/dL (8.5-10.1); CREATININE 0.8 mg/dL (0.6-1.0); GFR 70.3; TOTAL BILIRUBIN 0.3 mg/dL (0.2-1.0); TOTAL PROTEIN 6.4 g/dL (6.4-8.2)
[2020-12-17] MEDS: PANTOPRAZOLE 40 MG TABLET. PO SCH (08:58)
[2020-12-17] MEDS: ISOSORBIDE MONONITRATE ER 30 MG TAB.ER.24H PO SCH (08:59)
[2020-12-17] MEDS: MEMANTINE 10 MG TABLET. PO SCH ×2 (08:59→20:12)
[2020-12-17] MEDS: GALANTAMINE 24 MG PO SCH (08:59)
--- NOTE | 2020-12-17 10:06 | NUR ---
Patient willing to take medication after explaination. Patient wandering around room and is re-directable.
[2020-12-17 15:51] VITALS: BP 98/63
[2020-12-17] MEDS: QUEtiapine 100 MG TABLET. PO SCH (20:10)
[2020-12-17] MEDS: MIRTAZAPINE 15 MG TABLET PO SCH (20:11)
[2020-12-17] MEDS: ATORVASTATIN CALCIUM 20 MG TABLET PO SCH (20:11)
[2020-12-17] MEDS: ACETAMINOPHEN 325 MG TABLET PO PRN (20:12)
[2020-12-17] MEDS: traZODone 50 MG TABLET. PO PRN (20:13)
--- NOTE | 2020-12-17 21:26 | PDOC ---
Exam Note: Jaquan Note: Late entry for 12/16/2020. Please also refer to the separate dictated note~for this date of service dictated separately.~Patient seen individually. Discussed the patient with Nursing staff reviewed the chart.~Reviewed interim history and current functioning. Reviewed vital signs,~Labs/ Radiology~and current medic ations noted below. Continue current treatment with the changes noted in the dictated addendum note Assessment: Vital Signs/I&O: Vital Signs Date Time Temp Pulse Resp B/P (MAP) Pulse Ox O2 Delivery O2 Flow Rate FiO2 12/17/20 15:51 98.1 71 20 98/63 (75) 96 12/17/20 05:55 Room Air I & O 12/16/20 12/16/20 12/17/20 15:00 23:00 07:00 Intake Total 360 ml 360 ml Balance 360 ml 360 ml Labs: Laboratory Tests Test 12/17/20 07:18 White Blood Count 4.6 x10^3/uL (4.0-11.0) Red Blood Count 4.48 x10^6/uL (3.50-5.40) Hemoglobin 13.6 g/dL (12.0-15.5) Hematocrit 40.8 % (36.0-47.0) Mean Corpuscular Volume 91 fL (79-100) Mean Corpuscular Hemoglobin 30 pg (25-35) Mean Corpuscular Hemoglobin Concent 33 g/dL (31-37) Red Cell Distribution Width 13.7 % (11.5-14.5) Platelet Count 188 x10^3/uL (140-400) Neutrophils (%) (Auto) 47 % (31-73) Lymphocytes (%) (Auto) 39 % (24-48) Monocytes (%) (Auto) 10 % (0-9) H Eosinophils (%) (Auto) 4 % (0-3) H Basophils (%) (Auto) 0 % (0-3) Neutrophils # (Auto) 2.1 x10^3uL (1.8-7.7) Lymphocytes # (Auto) 1.8 x10^3/uL (1.0-4.8) Monocytes # (Auto) 0.4 x10^3/uL (0.0-1.1) Eosinophils # (Auto) 0.2 x10^3/uL (0.0-0.7) Basophils # (Auto) 0.0 x10^3/uL (0.0-0.2) Sodium Level 145 mmol/L (136-145) Potassium Level 4.0 mmol/L (3.5-5.1) Chloride Level 109 mmol/L (98-107) H Carbon Dioxide Level 30 mmol/L (21-32) Anion Gap 6 (6-14) Blood Urea Nitrogen 18 mg/dL (7-20) Creatinine 0.8 mg/dL (0.6-1.0) Estimated GFR (Cockcroft-Gault) 70.3 BUN/Creatinine Ratio 23 (6-20) H Glucose Level 98 mg/dL (70-99) Uric Acid 4.5 mg/dL (2.6-6.0) Calcium Level 8.7 mg/dL (8.5-10.1) Total Bilirubin 0.3 mg/dL (0.2-1.0) Aspartate Amino Transferase (AST) 21 U/L (15-37) Alanine Aminotransferase (ALT) 31 U/L (14-59) Alkaline Phosphatase 113 U/L (46-116) Total Protein 6.4 g/dL (6.4-8.2) Albumin 3.4 g/dL (3.4-5.0) Albumin/Globulin Ratio 1.1 (1.0-1.7) Current Medications: I have reviewed the current psychotropics carefully including drug interactions. Risk benefit ratio favors no change other than as noted in my dictated progress note. 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
--- NOTE | 2020-12-17 23:07 | NUR ---
Patient is wandering around the unit on assumption of care. She continues to be intrusive and resistant to redirection. No agitation so far this shift. Patient does not appear to be experiencing any pain or discomfort. She appears to be sleeping comfortably at present time. Will continue to monitor.
[2020-12-18 06:31] VITALS: BP 112/57
[2020-12-18] MEDS: MEMANTINE 10 MG TABLET. PO SCH ×2 (08:28→20:26)
[2020-12-18] MEDS: ISOSORBIDE MONONITRATE ER 30 MG TAB.ER.24H PO SCH (08:28)
[2020-12-18] MEDS: PANTOPRAZOLE 40 MG TABLET. PO SCH (08:28)
[2020-12-18] MEDS: GALANTAMINE 24 MG PO SCH (08:28)
--- NOTE | 2020-12-18 14:59 | NUR ---
Patient blood pressure trending low. patient will be encouraged to take in fluids. patient not symptomatic.
[2020-12-18 16:10] VITALS: BP 86/49
[2020-12-18] MEDS: ATORVASTATIN CALCIUM 20 MG TABLET PO SCH (20:24)
[2020-12-18] MEDS: MIRTAZAPINE 15 MG TABLET PO SCH (20:24)
[2020-12-18] MEDS: QUEtiapine 100 MG TABLET. PO SCH (20:25)
[2020-12-18] MEDS: ACETAMINOPHEN 325 MG TABLET PO PRN (20:25)
[2020-12-18] MEDS: traZODone 50 MG TABLET. PO PRN ×2 (20:26→22:02)
--- NOTE | 2020-12-18 20:59 | PDOC ---
Exam Note: Jaquan Note: Please also refer to the separate dictated note~for this date of service dictated separately.~Patient seen individually. Discussed the patient with Nursing staff reviewed the chart.~Reviewed interim history and current functioning. Reviewed vital signs,~Labs/ Radiology~and current medications noted below. Continue current treatment with the changes noted in the dictated addendum note Assessment: Vital Signs/I&O: Vital Signs Date Time Temp Pulse Resp B/P (MAP) Pulse Ox O2 Delivery O2 Flow Rate FiO2 12/18/20 16:10 97.1 93 18 86/49 (61) 94 12/17/20 05:55 Room Air I & O 12/17/20 12/17/20 12/18/20 15:00 23:00 07:00 Intake Total 560 ml 320 ml Balance 560 ml 320 ml Current Medications: I have reviewed the current psychotropics carefully including drug interactions. Risk benefit ratio favors no change other than as noted in my dictated progress note. 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
--- NOTE | 2020-12-18 23:59 | NUR ---
Patient is wandering around the unit on assumption of care. She continues to be intrusive and resistant to redirection. No agitation so far this shift. Patient does not appear to be experiencing any pain or discomfort. PRN Tylenol, Trazodone and Zydis administered with HS meds, with no effect. Repeat dose of Trazodone and Zydis administered 2 hours later at 2200, with no effect. Patient remains awake, restless and wandering at present time. Will continue to monitor.
--- NOTE | 2020-12-19 07:20 | PDOC ---
Exam Note: Jaquan Note: This note is a late entry for 12/15/2020 covers elements not covered in my initial note. Subjective: The patient was seen face to face in the evening of 12/15/2020 with Luz Elena TORRE, reviewed the chart. The patient slept 6 hours previous night. She remains confused, wandering she had not been aggressive. At one point she was somewhat disruptive, had to be in the West hallway to reduce stimuli. No p.r.n.s have been used. One of the occasions she was redirected she was insulting to the staff members but compliant with her medications. She tried to flush out one of her medications through her mouth, threw it in the garbage, had to be replaced. She is quite oblivious of this. Review of Systems: No CV, , pulmonary, eye, ENT system symptoms on review. Reliability poor. Mental Status Exam: The patient is oriented to herself. Insight and judgment, recent and remote memory, attention and concentration, fund of knowledge is poor consistent with her diagnosis. Laboratory Data: Reviewed. Impression: Major neurocognitive disorder Alzheimer vascular with delusion, depression, behavioral disturbance. Anxiety disorder unspecified. Impulse control disorder unspecified. Plan: No change from initial note. Adjust as clinically indicated. Assessment: Vital Signs/I&O: Vital Signs Date Time Temp Pulse Resp B/P (MAP) Pulse Ox O2 Delivery O2 Flow Rate FiO2 12/18/20 16:10 97.1 93 18 86/49 (61) 94 12/17/20 05:55 Room Air I & O 12/18/20 12/18/20 12/19/20 15:00 23:00 07:00 Intake Total 720 ml 480 ml 120 ml Balance 720 ml 480 ml 120 ml Current Medications: Meds: Current Medications Medications (Trade) Dose Ordered Sig/Ashish Route PRN Reason Start Time Stop Time Status Last Admin Dose Admin Olanzapine (ZyPREXA ZYDIS) 2.5 mg PRN Q2HR PRN PO PSYCHOSIS 12/10/20 22:45 12/18/20 22:02 Acetaminophen (Tylenol) 650 mg PRN Q6HRS PRN PO MILD PAIN / TEMP > 100.3'F 12/10/20 23:45 12/18/20 20:25 Multi-Ingredient Ointment (Analgesic [place]) 1 malik PRN QID PRN TP MUSCLE PAIN 12/10/20 23:45 Al Hydroxide/Mg Hydroxide (Mylanta Plus Xs) 15 ml PRN AFTMEALHC PRN PO DYSPEPSIA 12/10/20 23:45 Magnesium Hydroxide (Milk Of Magnesia) 2,400 mg PRN QHS PRN PO CONSTIPATION 12/10/20 23:45 12/13/20 07:42 Galantamine Hydrobromide (Razadyne Er) 24 mg DAILY PO 12/11/20 09:00 12/18/20 08:28 Isosorbide Mononitrate (Imdur) 30 mg DAILY PO 12/11/20 09:00 12/18/20 08:28 Memantine (Namenda) 10 mg BID PO 12/11/20 09:00 12/18/20 20:26 Quetiapine Fumarate (SEROquel) 75 mg QHS PO 12/11/20 21:00 12/14/20 17:18 DC 12/13/20 20:22 Atorvastatin Calcium (Lipitor) 40 mg QHS PO 12/11/20 21:00 12/18/20 20:24 Pantoprazole Sodium (Protonix) 40 mg DAILYAC PO 12/11/20 07:30 12/18/20 08:28 Mirtazapine (Remeron) 7.5 mg QHS PO 12/11/20 21:00 12/12/20 17:36 DC 12/11/20 20:35 Trazodone HCl (Desyrel) 50 mg PRN QHS PRN PO INSOMNIA, MAY REPEAT X1 12/11/20 18:30 12/18/20 22:02 Mirtazapine (Remeron) 15 mg QHS PO 12/12/20 21:00 12/18/20 20:24 Quetiapine Fumarate (SEROquel) 100 mg QHS PO 12/14/20 21:00 12/18/20 20:25 I have reviewed the current psychotropics carefully including drug interactions. Risk benefit ratio favors no change other than as noted in my dictated progress note. 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
[2020-12-19] MEDS: PANTOPRAZOLE 40 MG TABLET. PO SCH (07:30)
--- NOTE | 2020-12-19 07:53 | PDOC ---
Exam Note: Jaquan Note: This note is a late entry for 12/16/2020 covers elements not covered in my initial note. Subjective: The patient was seen face to face in the evening of 12/16/2020 with Ashlie TORRE, reviewed the chart. The patient slept 7-1/4 hours previous night. She remains confused, holding hands of another female demented patient but not inappropriate. She did receive trazodone. Review of Systems: No CV, , pulmonary, eye, ENT system symptoms on review. Reliability poor. Mental Status Exam: The patient is oriented to herself. Insight and judgment, recent and remote memory, attention and concentration, fund of knowledge is poor consistent with her diagnosis. Laboratory Data: Reviewed. Impression: Major neurocognitive disorder Alzheimer vascular with delusion, depression, behavioral disturbance. Anxiety disorder unspecified. Impulse control disorder unspecified. Plan: No change from initial note. Adjust as clinically indicated. Assessment: Vital Signs/I&O: Vital Signs Date Time Temp Pulse Resp B/P (MAP) Pulse Ox O2 Delivery O2 Flow Rate FiO2 12/18/20 16:10 97.1 93 18 86/49 (61) 94 12/17/20 05:55 Room Air I & O 12/18/20 12/18/20 12/19/20 15:00 23:00 07:00 Intake Total 720 ml 480 ml 120 ml Balance 720 ml 480 ml 120 ml Current Medications: Meds: Current Medications Medications (Trade) Dose Ordered Sig/Ashish Route PRN Reason Start Time Stop Time Status Last Admin Dose Admin Olanzapine (ZyPREXA ZYDIS) 2.5 mg PRN Q2HR PRN PO PSYCHOSIS 12/10/20 22:45 12/18/20 22:02 Acetaminophen (Tylenol) 650 mg PRN Q6HRS PRN PO MILD PAIN / TEMP > 100.3'F 12/10/20 23:45 12/18/20 20:25 Multi-Ingredient Ointment (Analgesic [place]) 1 malik PRN QID PRN TP MUSCLE PAIN 12/10/20 23:45 Al Hydroxide/Mg Hydroxide (Mylanta Plus Xs) 15 ml PRN AFTMEALHC PRN PO DYSPEPSIA 12/10/20 23:45 Magnesium Hydroxide (Milk Of Magnesia) 2,400 mg PRN QHS PRN PO CONSTIPATION 12/10/20 23:45 12/13/20 07:42 Galantamine Hydrobromide (Razadyne Er) 24 mg DAILY PO 12/11/20 09:00 12/18/20 08:28 Isosorbide Mononitrate (Imdur) 30 mg DAILY PO 12/11/20 09:00 12/18/20 08:28 Memantine (Namenda) 10 mg BID PO 12/11/20 09:00 12/18/20 20:26 Quetiapine Fumarate (SEROquel) 75 mg QHS PO 12/11/20 21:00 12/14/20 17:18 DC 12/13/20 20:22 Atorvastatin Calcium (Lipitor) 40 mg QHS PO 12/11/20 21:00 12/18/20 20:24 Pantoprazole Sodium (Protonix) 40 mg DAILYAC PO 12/11/20 07:30 12/18/20 08:28 Mirtazapine (Remeron) 7.5 mg QHS PO 12/11/20 21:00 12/12/20 17:36 DC 12/11/20 20:35 Trazodone HCl (Desyrel) 50 mg PRN QHS PRN PO INSOMNIA, MAY REPEAT X1 12/11/20 18:30 12/18/20 22:02 Mirtazapine (Remeron) 15 mg QHS PO 12/12/20 21:00 12/18/20 20:24 Quetiapine Fumarate (SEROquel) 100 mg QHS PO 12/14/20 21:00 12/18/20 20:25 I have reviewed the current psychotropics carefully including drug interactions. Risk benefit ratio favors no change other than as noted in my dictated progress note. 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
--- NOTE | 2020-12-19 08:20 | PDOC ---
Exam Note: Jaquan Note: This note is a late entry for 12/17/2020 covers elements not covered in my initial note. Subjective: The patient was seen face to face in the evening of 12/17/2020 with Александр TORRE, reviewed the chart. The patient slept 5-1/2 hours previous night. She slept until 10.30 a.m. Complains of feeling cold. She removed her nail which was almost dropping off. Does complain of sore throat. We will defer to Dr. Celis. She is asking for extra blankets. She does have temperature. Review of Systems: No CV, , pulmonary, eye system symptoms on review. Reliability poor. Mental Status Exam: The patient is oriented to herself. Insight and judgment, recent and remote memory, attention and concentration, fund of knowledge is poor consistent with her diagnosis. Laboratory Data: Reviewed. Impression: Major neurocognitive disorder Alzheimer vascular with delusion, depression, behavioral disturbance. Anxiety disorder unspecified. Impulse contr ol disorder unspecified. Plan: No change from initial note. Assessment: Vital Signs/I&O: Vital Signs Date Time Temp Pulse Resp B/P (MAP) Pulse Ox O2 Delivery O2 Flow Rate FiO2 12/18/20 16:10 97.1 93 18 86/49 (61) 94 12/17/20 05:55 Room Air I & O 12/18/20 12/18/20 12/19/20 15:00 23:00 07:00 Intake Total 720 ml 480 ml 120 ml Balance 720 ml 480 ml 120 ml Current Medications: Meds: Current Medications Medications (Trade) Dose Ordered Sig/Ashish Route PRN Reason Start Time Stop Time Status Last Admin Dose Admin Olanzapine (ZyPREXA ZYDIS) 2.5 mg PRN Q2HR PRN PO PSYCHOSIS 12/10/20 22:45 12/18/20 22:02 Acetaminophen (Tylenol) 650 mg PRN Q6HRS PRN PO MILD PAIN / TEMP > 100.3'F 12/10/20 23:45 12/18/20 20:25 Multi-Ingredient Ointment (Analgesic [place]) 1 malik PRN QID PRN TP MUSCLE PAIN 12/10/20 23:45 Al Hydroxide/Mg Hydroxide (Mylanta Plus Xs) 15 ml PRN AFTMEALHC PRN PO DYSPEPSIA 12/10/20 23:45 Magnesium Hydroxide (Milk Of Magnesia) 2,400 mg PRN QHS PRN PO CONSTIPATION 12/10/20 23:45 12/13/20 07:42 Galantamine Hydrobromide (Razadyne Er) 24 mg DAILY PO 12/11/20 09:00 12/18/20 08:28 Isosorbide Mononitrate (Imdur) 30 mg DAILY PO 12/11/20 09:00 12/18/20 08:28 Memantine (Namenda) 10 mg BID PO 12/11/20 09:00 12/18/20 20:26 Quetiapine Fumarate (SEROquel) 75 mg QHS PO 12/11/20 21:00 12/14/20 17:18 DC 12/13/20 20:22 Atorvastatin Calcium (Lipitor) 40 mg QHS PO 12/11/20 21:00 12/18/20 20:24 Pantoprazole Sodium (Protonix) 40 mg DAILYAC PO 12/11/20 07:30 12/18/20 08:28 Mirtazapine (Remeron) 7.5 mg QHS PO 12/11/20 21:00 12/12/20 17:36 DC 12/11/20 20:35 Trazodone HCl (Desyrel) 50 mg PRN QHS PRN PO INSOMNIA, MAY REPEAT X1 12/11/20 18:30 12/18/20 22:02 Mirtazapine (Remeron) 15 mg QHS PO 12/12/20 21:00 12/18/20 20:24 Quetiapine Fumarate (SEROquel) 100 mg QHS PO 12/14/20 21:00 12/18/20 20:25 I have reviewed the current psychotropics carefully including drug interactions. Risk benefit ratio favors no change other than as noted in my dictated progress note. 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
--- NOTE | 2020-12-19 08:44 | PDOC ---
Exam Note: Jaquan Note: This note is a late entry for 12/18/2020 covers elements not covered in my initial note. Subjective: The patient was seen face to face in the evening of 12/18/2020 with Александр TORRE, reviewed the chart. The patient slept 8-1/2 hours previous night. The patient has had low blood pressure in the evening 86/49. I will defer to Dr. Celis. Review of Systems: No CV, , pulmonary, eye system symptoms on review. She continues to ambulate on her own. Mental Status Exam: The patient is oriented to herself. Insight and judgment, recent and remote memory, attention and concentration, fund of knowledge is poor consistent with her diagnosis. Laboratory Data: Reviewed. Impression: Major neurocognitive disorder Alzheimer vascular with delusion, depression, behavioral disturbance. Anxiety disorder unspecified. Impulse control disorder unspecified. Plan: No change from initial note. Assessment: Vital Signs/I&O: Vital Signs Date Time Temp Pulse Resp B/P (MAP) Pulse Ox O2 Delivery O2 Flow Rate FiO2 12/18/20 16:10 97.1 93 18 86/49 (61) 94 12/17/20 05:55 Room Air I & O 12/18/20 12/18/20 12/19/20 15:00 23:00 07:00 Intake Total 720 ml 480 ml 120 ml Balance 720 ml 480 ml 120 ml Current Medications: Meds: Current Medications Medications (Trade) Dose Ordered Sig/Ashish Route PRN Reason Start Time Stop Time Status Last Admin Dose Admin Olanzapine (ZyPREXA ZYDIS) 2.5 mg PRN Q2HR PRN PO PSYCHOSIS 12/10/20 22:45 12/18/20 22:02 Acetaminophen (Tylenol) 650 mg PRN Q6HRS PRN PO MILD PAIN / TEMP > 100.3'F 12/10/20 23:45 12/18/20 20:25 Multi-Ingredient Ointment (Analgesic [place]) 1 malik PRN QID PRN TP MUSCLE PAIN 12/10/20 23:45 Al Hydroxide/Mg Hydroxide (Mylanta Plus Xs) 15 ml PRN AFTMEALHC PRN PO DYSPEPSIA 12/10/20 23:45 Magnesium Hydroxide (Milk Of Magnesia) 2,400 mg PRN QHS PRN PO CONSTIPATION 12/10/20 23:45 12/13/20 07:42 Galantamine Hydrobromide (Razadyne Er) 24 mg DAILY PO 12/11/20 09:00 12/18/20 08:28 Isosorbide Mononitrate (Imdur) 30 mg DAILY PO 12/11/20 09:00 12/18/20 08:28 Memantine (Namenda) 10 mg BID PO 12/11/20 09:00 12/18/20 20:26 Quetiapine Fumarate (SEROquel) 75 mg QHS PO 12/11/20 21:00 12/14/20 17:18 DC 12/13/20 20:22 Atorvastatin Calcium (Lipitor) 40 mg QHS PO 12/11/20 21:00 12/18/20 20:24 Pantoprazole Sodium (Protonix) 40 mg DAILYAC PO 12/11/20 07:30 12/18/20 08:28 Mirtazapine (Remeron) 7.5 mg QHS PO 12/11/20 21:00 12/12/20 17:36 DC 12/11/20 20:35 Trazodone HCl (Desyrel) 50 mg PRN QHS PRN PO INSOMNIA, MAY REPEAT X1 12/11/20 18:30 12/18/20 22:02 Mirtazapine (Remeron) 15 mg QHS PO 12/12/20 21:00 12/18/20 20:24 Quetiapine Fumarate (SEROquel) 100 mg QHS PO 12/14/20 21:00 12/18/20 20:25 I have reviewed the current psychotropics carefully including drug interactions. Risk benefit ratio favors no change other than as noted in my dictated progress note. 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
[2020-12-19] MEDS: MEMANTINE 10 MG TABLET. PO SCH ×2 (09:00→20:02)
[2020-12-19] MEDS: GALANTAMINE 24 MG PO SCH (09:00)
[2020-12-19] MEDS: ISOSORBIDE MONONITRATE ER 30 MG TAB.ER.24H PO SCH (09:00)
--- NOTE | 2020-12-19 12:09 | NUR ---
See downtime med rec for am medication administration.
--- NOTE | 2020-12-19 12:30 | NUR ---
WEEKLY ACTIVITY THERAPY NOTE Date of Admission: 12/10/2020 Date of AT Assessment: 12/13/20 Precipitating behaviors that initiated intake and admission: pulling daughter's hair, bites daughter, belligerent, combative, spits medication on floor Goal aimed: to increase engagement/ sensory stimulation Initial Goal: Pt. will participate in at least five individual Activity Therapy sessions before discharge. Weekly progress towards goal: achieved through group- 5/5 Group participation level: 4 min, 1 full Weekly highlights: fully engaged in sensory room on afternoon, singing along with [employer] on Saturday Behaviors observed: wanders unit, pleasantly confused, fidgets, eating non edibles on Saturday (stress ball), assistance needed to sit and stand with transitions, difficulty processing directions Plan: repeat goal and add group option Beneficial adaptations: potentially sensory stimulation
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
--- NOTE | 2020-12-19 16:49 | NUR ---
Pt has been complaint with assessment and medications. No complaints or concerns at this time. She wanders frequently and has difficulty holding/maintaining a rational conversation with others. For the most part her demeanor is cheerful but occasionally intrusive. Will pass on to the next shift.
[2020-12-19] MEDS: QUEtiapine 100 MG TABLET. PO SCH (20:02)
[2020-12-19] MEDS: ATORVASTATIN CALCIUM 20 MG TABLET PO SCH (20:02)
[2020-12-19] MEDS: AMITRIPTYLINE HCL 25 MG TABLET PO SCH (20:03)
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
--- NOTE | 2020-12-19 21:10 | PDOC ---
Exam Note: Jaquan Note: Please also refer to the separate dictated note~for this date of service dictated separately.~Patient seen individually. Discussed the patient with Nursing staff reviewed the chart.~Reviewed interim history and current functioning. Reviewed vital signs,~Labs/ Radiology~and current medications noted below. Continue current treatment with the changes noted in the dictated addendum note Assessment: Vital Signs/I&O: Vital Signs Date Time Temp Pulse Resp B/P (MAP) Pulse Ox O2 Delivery O2 Flow Rate FiO2 12/19/20 09:00 93 86/49 12/18/20 16:10 97.1 18 94 12/17/20 05:55 Room Air I & O 12/18/20 12/18/20 12/19/20 15:00 23:00 07:00 Intake Total 720 ml 480 ml 120 ml Balance 720 ml 480 ml 120 ml Current Medications: Meds: Current Medications Medications (Trade) Dose Ordered Sig/Ashish Route PRN Reason Start Time Stop Time Status Last Admin Dose Admin Olanzapine (ZyPREXA ZYDIS) 2.5 mg PRN Q2HR PRN PO PSYCHOSIS 12/10/20 22:45 12/19/20 20:06 Acetaminophen (Tylenol) 650 mg PRN Q6HRS PRN PO MILD PAIN / TEMP > 100.3'F 12/10/20 23:45 12/18/20 20:25 Multi-Ingredient Ointment (Analgesic [place]) 1 malik PRN QID PRN TP MUSCLE PAIN 12/10/20 23:45 Al Hydroxide/Mg Hydroxide (Mylanta Plus Xs) 15 ml PRN AFTMEALHC PRN PO DYSPEPSIA 12/10/20 23:45 Magnesium Hydroxide (Milk Of Magnesia) 2,400 mg PRN QHS PRN PO CONSTIPATION 12/10/20 23:45 12/13/20 07:42 Galantamine Hydrobromide (Razadyne Er) 24 mg DAILY PO 12/11/20 09:00 12/18/20 08:28 Isosorbide Mononitrate (Imdur) 30 mg DAILY PO 12/11/20 09:00 12/18/20 08:28 Memantine (Namenda) 10 mg BID PO 12/11/20 09:00 12/19/20 20:02 Quetiapine Fumarate (SEROquel) 75 mg QHS PO 12/11/20 21:00 12/14/20 17:18 DC 12/13/20 20:22 Atorvastatin Calcium (Lipitor) 40 mg QHS PO 12/11/20 21:00 12/19/20 20:02 Pantoprazole Sodium (Protonix) 40 mg DAILYAC PO 12/11/20 07:30 12/18/20 08:28 Mirtazapine (Remeron) 7.5 mg QHS PO 12/11/20 21:00 12/12/20 17:36 DC 12/11/20 20:35 Trazodone HCl (Desyrel) 50 mg PRN QHS PRN PO INSOMNIA, MAY REPEAT X1 12/11/20 18:30 12/18/20 22:02 Mirtazapine (Remeron) 15 mg QHS PO 12/12/20 21:00 12/19/20 17:26 DC 12/18/20 20:24 Quetiapine Fumarate (SEROquel) 100 mg QHS PO 12/14/20 21:00 12/19/20 20:02 Amitriptyline HCl (Elavil) 25 mg QHS PO 12/19/20 21:00 12/19/20 20:03 Sertraline HCl (Zoloft) 25 mg DAILY PO 12/20/20 09:00 Current Medications Medications (Trade) Dose Ordered Sig/Ashish Route PRN Reason Start Time Stop Time Status Last Admin Dose Admin Amitriptyline HCl (Elavil) 25 mg QHS PO 12/19/20 21:00 12/19/20 20:03 I have reviewed the current psychotropics carefully including drug interactions. Risk benefit ratio favors no change other than as noted in my dictated progress note. 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
--- NOTE | 2020-12-19 22:00 | NUR ---
Patient compliant with medications taken whole with water with encouragement. PRN zyprexa that was given at 1999 was effective. Patient was able leave [place], go to her room and go to bed. No further adverse behaviors were noted this night.
[2020-12-20] MEDS: PANTOPRAZOLE 40 MG TABLET. PO SCH (07:30)
[2020-12-20] MEDS: GALANTAMINE 24 MG PO SCH (09:00)
[2020-12-20] MEDS: ISOSORBIDE MONONITRATE ER 30 MG TAB.ER.24H PO SCH (09:00)
[2020-12-20] MEDS: MEMANTINE 10 MG TABLET. PO SCH ×2 (09:00→20:17)
[2020-12-20] MEDS: SERTRALINE 25 MG TABLET. PO SCH (09:00)
--- NOTE | 2020-12-20 15:58 | NUR ---
Pt has been complaint with assessment and medications. No complaints or concerns at this time. She wanders frequently and has difficulty holding/maintaining a rational conversation with others. No SI/HI behaviors observed nor aggression towards others. Will pass on to the next shift.
[2020-12-20 16:24] VITALS: BP 117/75
[2020-12-20] MEDS: ATORVASTATIN CALCIUM 20 MG TABLET PO SCH (20:17)
[2020-12-20] MEDS: AMITRIPTYLINE HCL 25 MG TABLET PO SCH (20:17)
[2020-12-20] MEDS: QUEtiapine 100 MG TABLET. PO SCH (20:17)
--- NOTE | 2020-12-20 21:34 | PDOC ---
Exam Note: Jaquan Note: This note is a late entry for 12/19/2020 covers elements not covered in my initial note. Subjective: The patient was seen face to face in the morning of 12/19/2020 for a treatment team meeting with Sangita Martin, Edwige Hartley and Melissa (social services coordinator), Lashonda Jackson, activity therapy and Luz Elena TORRE, discussed the patients diagnosis, progress, and reviewed the chart. The patients daughter Alma attended the meeting. She is compliant with medications. She slept 2-1/4 hours previous night. She did much better in groups at one point, singing amazing jodi. She remains disorganized, was trying to eat the stress ball but redirected. Review of Systems: No CV, , pulmonary, eye system symptoms on review. Reliability poor. Mental Status Exam: The patient is oriented to herself. Insight and judgment, recent and remote memory, attention and concentration, fund of knowledge is poor consistent with her diagnosis. Laboratory Data: Reviewed. Impression: Major neurocognitive disorder Alzheimer vascular with delusion, depression, behavioral disturbance. Anxiety disorder unspecified. Impulse control disorder unspecified. Plan: No change from initial note. The patient continues to sleep poorly. She slept 2-1/4 hours previous night. We will change Remeron to Elavil 25 mg h.s. Start Zoloft 25 mg a day. She gets somewhat disruptive at times and told another patient to shut up. Continue rest unchanged. Assessment: Vital Signs/I&O: Vital Signs Date Time Temp Pulse Resp B/P (MAP) Pulse Ox O2 Delivery O2 Flow Rate FiO2 12/20/20 16:24 97.4 71 16 117/75 (89) 95 12/17/20 05:55 Room Air I & O 12/19/20 12/19/20 12/20/20 15:00 23:00 07:00 Intake Total 480 ml 480 ml 120 ml Balance 480 ml 480 ml 120 ml Current Medications: Meds: Current Medications Medications (Trade) Dose Ordered Sig/Ashish Route PRN Reason Start Time Stop Time Status Last Admin Dose Admin Olanzapine (ZyPREXA ZYDIS) 2.5 mg PRN Q2HR PRN PO PSYCHOSIS 12/10/20 22:45 12/19/20 20:06 Acetaminophen (Tylenol) 650 mg PRN Q6HRS PRN PO MILD PAIN / TEMP > 100.3'F 12/10/20 23:45 12/18/20 20:25 Multi-Ingredient Ointment (Analgesic [place]) 1 malik PRN QID PRN TP MUSCLE PAIN 12/10/20 23:45 Al Hydroxide/Mg Hydroxide (Mylanta Plus Xs) 15 ml PRN AFTMEALHC PRN PO DYSPEPSIA 12/10/20 23:45 Magnesium Hydroxide (Milk Of Magnesia) 2,400 mg PRN QHS PRN PO CONSTIPATION 12/10/20 23:45 12/13/20 07:42 Galantamine Hydrobromide (Razadyne Er) 24 mg DAILY PO 12/11/20 09:00 12/20/20 09:00 Isosorbide Mononitrate (Imdur) 30 mg DAILY PO 12/11/20 09:00 12/20/20 09:00 Memantine (Namenda) 10 mg BID PO 12/11/20 09:00 12/20/20 20:17 Quetiapine Fumarate (SEROquel) 75 mg QHS PO 12/11/20 21:00 12/14/20 17:18 DC 12/13/20 20:22 Atorvastatin Calcium (Lipitor) 40 mg QHS PO 12/11/20 21:00 12/20/20 20:17 Pantoprazole Sodium (Protonix) 40 mg DAILYAC PO 12/11/20 07:30 12/20/20 07:30 Mirtazapine (Remeron) 7.5 mg QHS PO 12/11/20 21:00 12/12/20 17:36 DC 12/11/20 20:35 Trazodone HCl (Desyrel) 50 mg PRN QHS PRN PO INSOMNIA, MAY REPEAT X1 12/11/20 18:30 12/18/20 22:02 Mirtazapine (Remeron) 15 mg QHS PO 12/12/20 21:00 12/19/20 17:26 DC 12/18/20 20:24 Quetiapine Fumarate (SEROquel) 100 mg QHS PO 12/14/20 21:00 12/20/20 20:17 Amitriptyline HCl (Elavil) 25 mg QHS PO 12/19/20 21:00 12/20/20 20:17 Sertraline HCl (Zoloft) 25 mg DAILY PO 12/20/20 09:00 12/20/20 09:00 Current Medications Medications (Trade) Dose Ordered Sig/Ashish Route PRN Reason Start Time Stop Time Status Last Admin Dose Admin Sertraline HCl (Zoloft) 25 mg DAILY PO 12/20/20 09:00 12/20/20 09:00 I have reviewed the current psychotropics carefully including drug interactions. Risk benefit ratio favors no change other than as noted in my dictated progress note. 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
--- NOTE | 2020-12-20 21:34 | PDOC ---
Exam Note: Jaquan Note: Please also refer to the separate dictated note~for this date of service dictated separately.~Patient seen individually. Discussed the patient with Nursing staff reviewed the chart.~Reviewed interim history and current functioning. Reviewed vital signs,~Labs/ Radiology~and current medications noted below. Continue current treatment with the changes noted in the dictated addendum note Assessment: Vital Signs/I&O: Vital Signs Date Time Temp Pulse Resp B/P (MAP) Pulse Ox O2 Delivery O2 Flow Rate FiO2 12/20/20 16:24 97.4 71 16 117/75 (89) 95 12/17/20 05:55 Room Air I & O 12/19/20 12/19/20 12/20/20 15:00 23:00 07:00 Intake Total 480 ml 480 ml 120 ml Balance 480 ml 480 ml 120 ml Current Medications: Meds: Current Medications Medications (Trade) Dose Ordered Sig/Ashish Route PRN Reason Start Time Stop Time Status Last Admin Dose Admin Olanzapine (ZyPREXA ZYDIS) 2.5 mg PRN Q2HR PRN PO PSYCHOSIS 12/10/20 22:45 12/19/20 20:06 Acetaminophen (Tylenol) 650 mg PRN Q6HRS PRN PO MILD PAIN / TEMP > 100.3'F 12/10/20 23:45 12/18/20 20:25 Multi-Ingredient Ointment (Analgesic [place]) 1 malik PRN QID PRN TP MUSCLE PAIN 12/10/20 23:45 Al Hydroxide/Mg Hydroxide (Mylanta Plus Xs) 15 ml PRN AFTMEALHC PRN PO DYSPEPSIA 12/10/20 23:45 Magnesium Hydroxide (Milk Of Magnesia) 2,400 mg PRN QHS PRN PO CONSTIPATION 12/10/20 23:45 12/13/20 07:42 Galantamine Hydrobromide (Razadyne Er) 24 mg DAILY PO 12/11/20 09:00 12/20/20 09:00 Isosorbide Mononitrate (Imdur) 30 mg DAILY PO 12/11/20 09:00 12/20/20 09:00 Memantine (Namenda) 10 mg BID PO 12/11/20 09:00 12/20/20 20:17 Quetiapine Fumarate (SEROquel) 75 mg QHS PO 12/11/20 21:00 12/14/20 17:18 DC 12/13/20 20:22 Atorvastatin Calcium (Lipitor) 40 mg QHS PO 12/11/20 21:00 12/20/20 20:17 Pantoprazole Sodium (Protonix) 40 mg DAILYAC PO 12/11/20 07:30 12/20/20 07:30 Mirtazapine (Remeron) 7.5 mg QHS PO 12/11/20 21:00 12/12/20 17:36 DC 12/11/20 20:35 Trazodone HCl (Desyrel) 50 mg PRN QHS PRN PO INSOMNIA, MAY REPEAT X1 12/11/20 18:30 12/18/20 22:02 Mirtazapine (Remeron) 15 mg QHS PO 12/12/20 21:00 12/19/20 17:26 DC 12/18/20 20:24 Quetiapine Fumarate (SEROquel) 100 mg QHS PO 12/14/20 21:00 12/20/20 20:17 Amitriptyline HCl (Elavil) 25 mg QHS PO 12/19/20 21:00 12/20/20 20:17 Sertraline HCl (Zoloft) 25 mg DAILY PO 12/20/20 09:00 12/20/20 09:00 Current Medications Medications (Trade) Dose Ordered Sig/Ashish Route PRN Reason Start Time Stop Time Status Last Admin Dose Admin Sertraline HCl (Zoloft) 25 mg DAILY PO 12/20/20 09:00 12/20/20 09:00 I have reviewed the current psychotropics carefully including drug interactions. Risk benefit ratio favors no change other than as noted in my dictated progress note. 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
[2020-12-20] MEDS: traZODone 50 MG TABLET. PO PRN (23:31)
--- NOTE | 2020-12-20 23:33 | NUR ---
patient restless and not sleeping. PRN trazodone and zyprexa given per order for insomnia and agitation. Addendum: 12/21/20 at 0101 by JEFFERY ZHANG RN patient was asleep when the nurse went to give meds. Unadministered both.
--- NOTE | 2020-12-21 01:02 | NUR ---
Patient was restless and walking in and out of other patients rooms. Patient was observed holding hands with a male peer. Verbally re-directed and from male peer. Patient compliant with meds taken whole with water with a lot of encouragement.
[2020-12-21 05:52] VITALS: BP 133/83
--- NOTE | 2020-12-21 07:49 | PDOC ---
Exam Note: Jaquan Note: This note is a late entry for 12/20/2020 covers elements not covered in my initial note. Subjective: The patient was seen face to face in the evening of 12/20/2020 with Luz Elena TORRE, discussed and reviewed the chart. She slept 6-1/2 hours previous night. The patient remains confused, wandering, not aggressive. Review of Systems: No CV, , pulmonary, eye system symptoms on review. Reliability poor. Mental Status Exam: The patient is oriented to herself. Insight and judgment, recent and remote memory, attention and concentration, fund of knowledge is poor consistent with her diagnosis. Laboratory Data: Reviewed. Impression: Major neurocognitive disorder Alzheimer vascular with delusion, depression, behavioral disturbance. Anxiety disorder unspecified. Impulse control disorder unspecified. Plan: No change from initial note. Assessment: Vital Signs/I&O: Vital Signs Date Time Temp Pulse Resp B/P (MAP) Pulse Ox O2 Delivery O2 Flow Rate FiO2 12/21/20 05:52 97.6 61 16 133/83 (100) 97 12/17/20 05:55 Room Air I & O 12/20/20 12/20/20 12/21/20 15:00 23:00 07:00 Intake Total 480 ml 120 ml Balance 480 ml 120 ml Current Medications: Meds: Current Medications Medications (Trade) Dose Ordered Sig/Ashish Route PRN Reason Start Time Stop Time Status Last Admin Dose Admin Olanzapine (ZyPREXA ZYDIS) 2.5 mg PRN Q2HR PRN PO PSYCHOSIS 12/10/20 22:45 12/21/20 04:02 Acetaminophen (Tylenol) 650 mg PRN Q6HRS PRN PO MILD PAIN / TEMP > 100.3'F 12/10/20 23:45 12/18/20 20:25 Multi-Ingredient Ointment (Analgesic [employer]) 1 malik PRN QID PRN TP MUSCLE PAIN 12/10/20 23:45 Al Hydroxide/Mg Hydroxide (Mylanta Plus Xs) 15 ml PRN AFTMEALHC PRN PO DYSPEPSIA 12/10/20 23:45 Magnesium Hydroxide (Milk Of Magnesia) 2,400 mg PRN QHS PRN PO CONSTIPATION 12/10/20 23:45 12/13/20 07:42 Galantamine Hydrobromide (Razadyne Er) 24 mg DAILY PO 12/11/20 09:00 12/20/20 09:00 Isosorbide Mononitrate (Imdur) 30 mg DAILY PO 12/11/20 09:00 12/20/20 09:00 Memantine (Namenda) 10 mg BID PO 12/11/20 09:00 12/20/20 20:17 Quetiapine Fumarate (SEROquel) 75 mg QHS PO 12/11/20 21:00 12/14/20 17:18 DC 12/13/20 20:22 Atorvastatin Calcium (Lipitor) 40 mg QHS PO 12/11/20 21:00 12/20/20 20:17 Pantoprazole Sodium (Protonix) 40 mg DAILYAC PO 12/11/20 07:30 12/20/20 07:30 Mirtazapine (Remeron) 7.5 mg QHS PO 12/11/20 21:00 12/12/20 17:36 DC 12/11/20 20:35 Trazodone HCl (Desyrel) 50 mg PRN QHS PRN PO INSOMNIA, MAY REPEAT X1 12/11/20 18:30 12/18/20 22:02 Mirtazapine (Remeron) 15 mg QHS PO 12/12/20 21:00 12/19/20 17:26 DC 12/18/20 20:24 Quetiapine Fumarate (SEROquel) 100 mg QHS PO 12/14/20 21:00 12/20/20 20:17 Amitriptyline HCl (Elavil) 25 mg QHS PO 12/19/20 21:00 12/20/20 20:17 Sertraline HCl (Zoloft) 25 mg DAILY PO 12/20/20 09:00 12/20/20 09:00 Current Medications Medications (Trade) Dose Ordered Sig/Ashish Route PRN Reason Start Time Stop Time Status Last Admin Dose Admin Sertraline HCl (Zoloft) 25 mg DAILY PO 12/20/20 09:00 12/20/20 09:00 I have reviewed the current psychotropics carefully including drug interactions. Risk benefit ratio favors no change other than as noted in my dictated progress note. Diagnosis: Problems: (1) Dementia with behavioral disturbance (2) Major neurocognitive disorder (3) Impulse control disorder, unspecified (4) Anxiety disorder, unspecified (5) Dementia, vascular, with depression (6) Dementia, vascular, with delusions (7) Dementia in Alzheimer's disease with depression (8) Dementia in Alzheimer's disease with delusions ION NAVARRETE MD Dec 21, 2020 07:49
[2020-12-21] MEDS: ISOSORBIDE MONONITRATE ER 30 MG TAB.ER.24H PO SCH (08:45)
[2020-12-21] MEDS: MEMANTINE 10 MG TABLET. PO SCH ×2 (08:45→20:54)
[2020-12-21] MEDS: SERTRALINE 25 MG TABLET. PO SCH (08:45)
[2020-12-21] MEDS: GALANTAMINE 24 MG PO SCH (08:46)
[2020-12-21] MEDS: PANTOPRAZOLE 40 MG TABLET. PO SCH (08:46)
--- NOTE | 2020-12-21 11:59 | NUR ---
Pt has been complaint with assessment and medications. No complaints or concerns at this time. She wanders frequently and has difficulty holding/maintaining a rational conversation with others. She is pleasantly confused, alert to self only. No SI/HI behaviors observed nor aggression towards others. Will pass on to the next shift. When administering medications she needs step by step verbal directions during the whole process ("Tilt head up....open your mouth wide (staff pours in medications)....now close your mouth (staff hold water cup to pt's mouth)....take a big sip of water....now it's time to swallow"). After this process FORESTRY AND WILDLIFE MANAGER during shower noticed that pt had cheeked the medications. Medications will have to be crushed and mixed with applesauce. Will pass on to next shift.
[2020-12-21 16:58] VITALS: BP 110/78
[2020-12-21] MEDS: QUEtiapine 100 MG TABLET. PO SCH (20:53)
[2020-12-21] MEDS: AMITRIPTYLINE HCL 25 MG TABLET PO SCH (20:53)
[2020-12-21] MEDS: ATORVASTATIN CALCIUM 20 MG TABLET PO SCH (20:54)
--- NOTE | 2020-12-21 21:11 | PDOC ---
Exam Note: Jaquan Note: Please also refer to the separate dictated note~for this date of service dictated separately.~Patient seen individually. Discussed the patient with Nursing staff reviewed the chart.~Reviewed interim history and current functioning. Reviewed vital signs,~Labs/ Radiology~and current medications noted below. Continue current treatment with the changes noted in the dictated addendum note Assessment: Vital Signs/I&O: Vital Signs Date Time Temp Pulse Resp B/P (MAP) Pulse Ox O2 Delivery O2 Flow Rate FiO2 12/21/20 16:58 98.0 65 18 110/78 (89) 94 12/17/20 05:55 Room Air I & O 12/20/20 12/20/20 12/21/20 15:00 23:00 07:00 Intake Total 480 ml 120 ml Balance 480 ml 120 ml Current Medications: Meds: Current Medications Medications (Trade) Dose Ordered Sig/Ashish Route PRN Reason Start Time Stop Time Status Last Admin Dose Admin Olanzapine (ZyPREXA ZYDIS) 2.5 mg PRN Q2HR PRN PO PSYCHOSIS 12/10/20 22:45 12/21/20 04:02 Acetaminophen (Tylenol) 650 mg PRN Q6HRS PRN PO MILD PAIN / TEMP > 100.3'F 12/10/20 23:45 12/18/20 20:25 Multi-Ingredient Ointment (Analgesic [place]) 1 malik PRN QID PRN TP MUSCLE PAIN 12/10/20 23:45 Al Hydroxide/Mg Hydroxide (Mylanta Plus Xs) 15 ml PRN AFTMEALHC PRN PO DYSPEPSIA 12/10/20 23:45 Magnesium Hydroxide (Milk Of Magnesia) 2,400 mg PRN QHS PRN PO CONSTIPATION 12/10/20 23:45 12/13/20 07:42 Galantamine Hydrobromide (Razadyne Er) 24 mg DAILY PO 12/11/20 09:00 12/21/20 08:46 Isosorbide Mononitrate (Imdur) 30 mg DAILY PO 12/11/20 09:00 12/21/20 08:45 Memantine (Namenda) 10 mg BID PO 12/11/20 09:00 12/21/20 20:54 Quetiapine Fumarate (SEROquel) 75 mg QHS PO 12/11/20 21:00 12/14/20 17:18 DC 12/13/20 20:22 Atorvastatin Calcium (Lipitor) 40 mg QHS PO 12/11/20 21:00 12/21/20 20:54 Pantoprazole Sodium (Protonix) 40 mg DAILYAC PO 12/11/20 07:30 12/21/20 08:46 Mirtazapine (Remeron) 7.5 mg QHS PO 12/11/20 21:00 12/12/20 17:36 DC 12/11/20 20:35 Trazodone HCl (Desyrel) 50 mg PRN QHS PRN PO INSOMNIA, MAY REPEAT X1 12/11/20 18:30 12/18/20 22:02 Mirtazapine (Remeron) 15 mg QHS PO 12/12/20 21:00 12/19/20 17:26 DC 12/18/20 20:24 Quetiapine Fumarate (SEROquel) 100 mg QHS PO 12/14/20 21:00 12/21/20 20:53 Amitriptyline HCl (Elavil) 25 mg QHS PO 12/19/20 21:00 12/21/20 20:53 Sertraline HCl (Zoloft) 25 mg DAILY PO 12/20/20 09:00 12/22/20 09:00 12/21/20 08:45 Sertraline HCl (Zoloft) 50 mg DAILY PO 12/23/20 09:00 I have reviewed the current psychotropics carefully including drug interactions. Risk benefit ratio favors no change other than as noted in my dictated progress note. Diagnosis: Problems: (1) Dementia with behavioral disturbance (2) Major neurocognitive disorder (3) Impulse control disorder, unspecified (4) Anxiety disorder, unspecified (5) Dementia, vascular, with depression (6) Dementia, vascular, with delusions (7) Dementia in Alzheimer's disease with depression (8) Dementia in Alzheimer's disease with delusions ION NAVARRETE MD Dec 21, 2020 21:11
[2020-12-21] MEDS: traZODone 50 MG TABLET. PO PRN (21:46)
--- NOTE | 2020-12-21 21:49 | NUR ---
Patient restless, agitated and getting out of bed. PRN trazodone and zyprexa given per order for insomnia and agitation. Will continue to monitor. Addendum: 12/21/20 at 2300 by JEFFERY ZHANG RN PRN meds not given, patient was asleep when nurse checked on her before administering medications.
--- NOTE | 2020-12-21 23:02 | NUR ---
Patient compliant with HS medications. She took them crushed in chocolate pudding and said "yuk" after swallowing it. Patient wanders and can be intrusive at times. She is mostly redirectable tonight.
[2020-12-22 06:19] VITALS: BP 114/69
--- NOTE | 2020-12-22 08:10 | PDOC ---
Exam Note: Jaquan Note: This note is a late entry for 12/21/2020 covers elements not covered in my initial note. Subjective: The patient was seen face to face in the evening of 12/21/2020 with Luz Elena TORRE, discussed and reviewed the chart. She slept 6-3/4 hours previous night. The patient has been wandering, does not know how to take her medications at times. Cheeks her medications. Staff will be crushing all her meds. Review of Systems: No CV, , pulmonary, eye system symptoms on review. Reliability poor. Mental Status Exam: The patient is oriented to herself. Insight and judgment, recent and remote memory, attention and concentration, fund of knowledge is poor consistent with her diagnosis. Laboratory Data: Reviewed. Impression: Major neurocognitive disorder Alzheimer vascular with delusion, depression, behavioral disturbance. Anxiety disorder unspecified. Impulse control disorder unspecified. Plan: No change from initial note. After she has been on Zoloft 25 mg a day for 3 days, we will increase to 50 mg a day. Rest unchanged. Assessment: Vital Signs/I&O: Vital Signs Date Time Temp Pulse Resp B/P (MAP) Pulse Ox O2 Delivery O2 Flow Rate FiO2 12/22/20 06:19 98.7 66 18 114/69 (84) 96 12/17/20 05:55 Room Air I & O 12/21/20 12/21/20 12/22/20 15:00 23:00 07:00 Intake Total 120 ml 120 ml Balance 120 ml 120 ml Current Medications: Meds: Current Medications Medications (Trade) Dose Ordered Sig/Ashish Route PRN Reason Start Time Stop Time Status Last Admin Dose Admin Olanzapine (ZyPREXA ZYDIS) 2.5 mg PRN Q2HR PRN PO PSYCHOSIS 12/10/20 22:45 12/21/20 04:02 Acetaminophen (Tylenol) 650 mg PRN Q6HRS PRN PO MILD PAIN / TEMP > 100.3'F 12/10/20 23:45 12/18/20 20:25 Multi-Ingredient Ointment (Analgesic [place]) 1 malik PRN QID PRN TP MUSCLE PAIN 12/10/20 23:45 Al Hydroxide/Mg Hydroxide (Mylanta Plus Xs) 15 ml PRN AFTMEALHC PRN PO DYSPEPSIA 12/10/20 23:45 Magnesium Hydroxide (Milk Of Magnesia) 2,400 mg PRN QHS PRN PO CONSTIPATION 12/10/20 23:45 12/13/20 07:42 Galantamine Hydrobromide (Razadyne Er) 24 mg DAILY PO 12/11/20 09:00 12/21/20 08:46 Isosorbide Mononitrate (Imdur) 30 mg DAILY PO 12/11/20 09:00 12/21/20 08:45 Memantine (Namenda) 10 mg BID PO 12/11/20 09:00 12/21/20 20:54 Quetiapine Fumarate (SEROquel) 75 mg QHS PO 12/11/20 21:00 12/14/20 17:18 DC 12/13/20 20:22 Atorvastatin Calcium (Lipitor) 40 mg QHS PO 12/11/20 21:00 12/21/20 20:54 Pantoprazole Sodium (Protonix) 40 mg DAILYAC PO 12/11/20 07:30 12/21/20 08:46 Mirtazapine (Remeron) 7.5 mg QHS PO 12/11/20 21:00 12/12/20 17:36 DC 12/11/20 20:35 Trazodone HCl (Desyrel) 50 mg PRN QHS PRN PO INSOMNIA, MAY REPEAT X1 12/11/20 18:30 12/18/20 22:02 Mirtazapine (Remeron) 15 mg QHS PO 12/12/20 21:00 12/19/20 17:26 DC 12/18/20 20:24 Quetiapine Fumarate (SEROquel) 100 mg QHS PO 12/14/20 21:00 12/21/20 20:53 Amitriptyline HCl (Elavil) 25 mg QHS PO 12/19/20 21:00 12/21/20 20:53 Sertraline HCl (Zoloft) 25 mg DAILY PO 12/20/20 09:00 12/22/20 09:00 12/21/20 08:45 Sertraline HCl (Zoloft) 50 mg DAILY PO 12/23/20 09:00 I have reviewed the current psychotropics carefully including drug interactions. Risk benefit ratio favors no change other than as noted in my dictated progress note. 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
[2020-12-22] MEDS: PANTOPRAZOLE 40 MG TABLET. PO SCH (08:48)
[2020-12-22] MEDS: MEMANTINE 10 MG TABLET. PO SCH ×2 (08:48→19:43)
[2020-12-22] MEDS: SERTRALINE 25 MG TABLET. PO SCH (08:48)
[2020-12-22] MEDS: ISOSORBIDE MONONITRATE ER 30 MG TAB.ER.24H PO SCH (08:48)
[2020-12-22] MEDS: GALANTAMINE 24 MG PO SCH (08:51)
--- NOTE | 2020-12-22 15:08 | NUR ---
Phone conversation with Alma, daughter/POA, who requested referrals for placement be faxed to the following facilities: -[facility] ([phone], -fax)- Left voice message for public welfare director Ailyn with request for return phone call. Faxed referral for review, awaiting return call. -[facility] ([phone])- They are not accepting memory care admissions at this time and wont be until 01/02/21. They have a lengthy waiting list. -[facility] ([phone], -fax)- Left voice message for public welfare director Chetna with request for return phone call. Faxed referral for review, awaiting return call. -[facility] ([phone], -fax)- Spoke to Eileen, corporate director of pharmacy, and faxed referral for review. Awaiting admission decision. Medicaid pending application number is [id number].
[2020-12-22 16:25] VITALS: BP 108/69
[2020-12-22] MEDS: QUEtiapine 50 MG TABLET. PO SCH (19:42)
[2020-12-22] MEDS: ATORVASTATIN CALCIUM 20 MG TABLET PO SCH (19:43)
[2020-12-22] MEDS: ACETAMINOPHEN 325 MG TABLET PO PRN (19:43)
[2020-12-22] MEDS: AMITRIPTYLINE HCL 25 MG TABLET PO SCH (19:43)
--- NOTE | 2020-12-22 21:09 | PDOC ---
Exam Note: Jaquan Note: Please also refer to the separate dictated note~for this date of service dictated separately.~Patient seen individually. Discussed the patient with Nursing staff reviewed the chart.~Reviewed interim history and current functioning. Reviewed vital signs,~Labs/ Radiology~and current medications noted below. Continue current treatment with the changes noted in the dictated addendum note Assessment: Vital Signs/I&O: Vital Signs Date Time Temp Pulse Resp B/P (MAP) Pulse Ox O2 Delivery O2 Flow Rate FiO2 12/22/20 16:25 98.0 85 18 108/69 (82) 94 12/17/20 05:55 Room Air I & O 12/21/20 12/21/20 12/22/20 15:00 23:00 07:00 Intake Total 120 ml 120 ml Balance 120 ml 120 ml Current Medications: Meds: Current Medications Medications (Trade) Dose Ordered Sig/Ashish Route PRN Reason Start Time Stop Time Status Last Admin Dose Admin Olanzapine (ZyPREXA ZYDIS) 2.5 mg PRN Q2HR PRN PO PSYCHOSIS 12/10/20 22:45 12/21/20 04:02 Acetaminophen (Tylenol) 650 mg PRN Q6HRS PRN PO MILD PAIN / TEMP > 100.3'F 12/10/20 23:45 12/22/20 19:43 Multi-Ingredient Ointment (Analgesic [place]) 1 malik PRN QID PRN TP MUSCLE PAIN 12/10/20 23:45 Al Hydroxide/Mg Hydroxide (Mylanta Plus Xs) 15 ml PRN AFTMEALHC PRN PO DYSPEPSIA 12/10/20 23:45 Magnesium Hydroxide (Milk Of Magnesia) 2,400 mg PRN QHS PRN PO CONSTIPATION 12/10/20 23:45 12/13/20 07:42 Galantamine Hydrobromide (Razadyne Er) 24 mg DAILY PO 12/11/20 09:00 12/22/20 08:51 Isosorbide Mononitrate (Imdur) 30 mg DAILY PO 12/11/20 09:00 12/22/20 08:48 Memantine (Namenda) 10 mg BID PO 12/11/20 09:00 12/22/20 19:43 Quetiapine Fumarate (SEROquel) 75 mg QHS PO 12/11/20 21:00 12/14/20 17:18 DC 12/13/20 20:22 Atorvastatin Calcium (Lipitor) 40 mg QHS PO 12/11/20 21:00 12/22/20 19:43 Pantoprazole Sodium (Protonix) 40 mg DAILYAC PO 12/11/20 07:30 12/22/20 08:48 Mirtazapine (Remeron) 7.5 mg QHS PO 12/11/20 21:00 12/12/20 17:36 DC 12/11/20 20:35 Trazodone HCl (Desyrel) 50 mg PRN QHS PRN PO INSOMNIA, MAY REPEAT X1 12/11/20 18:30 12/18/20 22:02 Mirtazapine (Remeron) 15 mg QHS PO 12/12/20 21:00 12/19/20 17:26 DC 12/18/20 20:24 Quetiapine Fumarate (SEROquel) 100 mg QHS PO 12/14/20 21:00 12/22/20 19:24 DC 12/21/20 20:53 Amitriptyline HCl (Elavil) 25 mg QHS PO 12/19/20 21:00 12/22/20 19:43 Sertraline HCl (Zoloft) 25 mg DAILY PO 12/20/20 09:00 12/22/20 09:00 DC 12/22/20 08:48 Sertraline HCl (Zoloft) 50 mg DAILY PO 12/23/20 09:00 Quetiapine Fumarate (SEROquel) 50 mg HS PO 12/22/20 21:00 12/22/20 19:42 Current Medications Medications (Trade) Dose Ordered Sig/Ashish Route PRN Reason Start Time Stop Time Status Last Admin Dose Admin Quetiapine Fumarate (SEROquel) 50 mg HS PO 12/22/20 21:00 12/22/20 19:42 I have reviewed the current psychotropics carefully including drug interactions. Risk benefit ratio favors no change other than as noted in my dictated progress note. 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
--- NOTE | 2020-12-22 23:24 | NUR ---
Logan pt walked around the unit totally confused but social with peers and cooperative with staff. At times she wanders into others rooms and tries to open doors. Meds were given crushed in applesauce which she took and said that tastes bad. She has had no aggressive behaviors and has a pleasant cheerful demeanor and has been easily redirected logan.
[2020-12-23 05:50] VITALS: BP 145/75
--- NOTE | 2020-12-23 08:29 | PDOC ---
Exam Note: Jaquan Note: This note is a late entry for 12/22/2020 covers elements not covered in my initial note. Subjective: The patient was seen face to face in the evening of 12/22/2020 with Andreina TORRE, discussed and reviewed the chart. She slept 6-1/2 hours previous night. The patient has been wandering, intrusive and disorganized. She is walking backwards, seems to have some extrapyramidal side effects. Review of Systems: No CV, , pulmonary, eye system symptoms on review. Reliability poor. Mental Status Exam: The patient is oriented to herself. Insight and judgment, recent and remote memory, attention and concentration, fund of knowledge is poor consistent with her diagnosis. Laboratory Data: Reviewed. Impression: Major neurocognitive disorder Alzheimer vascular with delusion, depression, behavioral disturbance. Anxiety disorder unspecified. Impulse control disorder unspecified. Plan: No change from initial note. Given the patients extrapyramidal symptoms, we will reduce Seroquel from 100 mg h.s. down to 50 mg h.s. h.s., Zoloft will increase from 25 mg a day to 50 mg a day in 3 days. Continue rest of the psychotropics unchanged. Adjust as clinically indicated. Assessment: Vital Signs/I&O: Vital Signs Date Time Temp Pulse Resp B/P (MAP) Pulse Ox O2 Delivery O2 Flow Rate FiO2 12/23/20 05:50 97.6 73 20 145/75 (98) 98 Room Air I & O 12/22/20 12/22/20 12/23/20 15:00 23:00 07:00 Intake Total 220 ml 120 ml Balance 220 ml 120 ml Current Medications: Meds: Current Medications Medications (Trade) Dose Ordered Sig/Ashish Route PRN Reason Start Time Stop Time Status Last Admin Dose Admin Olanzapine (ZyPREXA ZYDIS) 2.5 mg PRN Q2HR PRN PO PSYCHOSIS 12/10/20 22:45 12/21/20 04:02 Acetaminophen (Tylenol) 650 mg PRN Q6HRS PRN PO MILD PAIN / TEMP > 100.3'F 12/10/20 23:45 12/22/20 19:43 Multi-Ingredient Ointment (Analgesic [place]) 1 malik PRN QID PRN TP MUSCLE PAIN 12/10/20 23:45 Al Hydroxide/Mg Hydroxide (Mylanta Plus Xs) 15 ml PRN AFTMEALHC PRN PO DYSPEPSIA 12/10/20 23:45 Magnesium Hydroxide (Milk Of Magnesia) 2,400 mg PRN QHS PRN PO CONSTIPATION 12/10/20 23:45 12/13/20 07:42 Galantamine Hydrobromide (Razadyne Er) 24 mg DAILY PO 12/11/20 09:00 12/22/20 08:51 Isosorbide Mononitrate (Imdur) 30 mg DAILY PO 12/11/20 09:00 12/22/20 08:48 Memantine (Namenda) 10 mg BID PO 12/11/20 09:00 12/22/20 19:43 Quetiapine Fumarate (SEROquel) 75 mg QHS PO 12/11/20 21:00 12/14/20 17:18 DC 12/13/20 20:22 Atorvastatin Calcium (Lipitor) 40 mg QHS PO 12/11/20 21:00 12/22/20 19:43 Pantoprazole Sodium (Protonix) 40 mg DAILYAC PO 12/11/20 07:30 12/22/20 08:48 Mirtazapine (Remeron) 7.5 mg QHS PO 12/11/20 21:00 12/12/20 17:36 DC 12/11/20 20:35 Trazodone HCl (Desyrel) 50 mg PRN QHS PRN PO INSOMNIA, MAY REPEAT X1 12/11/20 18:30 12/18/20 22:02 Mirtazapine (Remeron) 15 mg QHS PO 12/12/20 21:00 12/19/20 17:26 DC 12/18/20 20:24 Quetiapine Fumarate (SEROquel) 100 mg QHS PO 12/14/20 21:00 12/22/20 19:24 DC 12/21/20 20:53 Amitriptyline HCl (Elavil) 25 mg QHS PO 12/19/20 21:00 12/22/20 19:43 Sertraline HCl (Zoloft) 25 mg DAILY PO 12/20/20 09:00 12/22/20 09:00 DC 12/22/20 08:48 Sertraline HCl (Zoloft) 50 mg DAILY PO 12/23/20 09:00 Quetiapine Fumarate (SEROquel) 50 mg HS PO 12/22/20 21:00 12/22/20 19:42 Current Medications Medications (Trade) Dose Ordered Sig/Ashish Route PRN Reason Start Time Stop Time Status Last Admin Dose Admin Quetiapine Fumarate (SEROquel) 50 mg HS PO 12/22/20 21:00 12/22/20 19:42 I have reviewed the current psychotropics carefully including drug interactions. Risk benefit ratio favors no change other than as noted in my dictated progress note. 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
[2020-12-23] MEDS: GALANTAMINE 24 MG PO SCH (09:55)
[2020-12-23] MEDS: ISOSORBIDE MONONITRATE ER 30 MG TAB.ER.24H PO SCH (09:56)
[2020-12-23] MEDS: PANTOPRAZOLE 40 MG TABLET. PO SCH (09:56)
[2020-12-23] MEDS: MEMANTINE 10 MG TABLET. PO SCH ×2 (09:56→20:30)
[2020-12-23] MEDS: SERTRALINE 50 MG TABLET. PO SCH (09:56)
--- NOTE | 2020-12-23 10:37 | NUR ---
Pt has been complaint with assessment and medications which were crushed and mixed into applesauce. She voices complaints or concerns at this time. She wanders frequently and has difficulty holding/maintaining a rational conversation with others. She is pleasantly confused, alert to self only, however she can not answer the question of what her name is but will answer to her name being called. No SI/HI behaviors observed nor aggression towards others. Will pass on to the next shift.
--- NOTE | 2020-12-23 11:58 | NUR ---
Contacted Kenyetta RN, nurse at [facility] ([phone]) at the request of Hunter Trapper Sangita. Provided [place] with nurse to nurse background on pt for possible admission to their facility.
--- NOTE | 2020-12-23 15:23 | NUR ---
Placement update: -[facility] has accepted Natacha for placement. -[facility] is still considering and had nurse to nurse call on this date. VERONIKA left two messages for Ailyn, reimbursement director at [facility], with request for return call with admit decision. -[facility] declined based on behaviors as they are an [facility] level of care. VERONIKA updated Alma, daughter/POA. Alma would prefer Natacha go to [facility] if she is accepted there. Alma will be involved in team meeting on 12/26/20.
[2020-12-23 15:37] VITALS: BP 120/75
[2020-12-23] MEDS: QUEtiapine 50 MG TABLET. PO SCH (20:29)
[2020-12-23] MEDS: AMITRIPTYLINE HCL 25 MG TABLET PO SCH (20:29)
[2020-12-23] MEDS: ATORVASTATIN CALCIUM 20 MG TABLET PO SCH (20:29)
--- NOTE | 2020-12-23 20:58 | PDOC ---
Exam Note: Jaquan Note: Please also refer to the separate dictated note~for this date of service dictated separately.~Patient seen individually. Discussed the patient with Nursing staff reviewed the chart.~Reviewed interim history and current functioning. Reviewed vital signs,~Labs/ Radiology~and current medications noted below. Continue current treatment with the changes noted in the dictated addendum note Assessment: Vital Signs/I&O: Vital Signs Date Time Temp Pulse Resp B/P (MAP) Pulse Ox O2 Delivery O2 Flow Rate FiO2 12/23/20 15:37 97.6 96 17 120/75 (90) 95 12/23/20 05:50 Room Air I & O 12/22/20 12/22/20 12/23/20 15:00 23:00 07:00 Intake Total 220 ml 120 ml Balance 220 ml 120 ml Current Medications: Meds: Current Medications Medications (Trade) Dose Ordered Sig/Ashish Route PRN Reason Start Time Stop Time Status Last Admin Dose Admin Olanzapine (ZyPREXA ZYDIS) 2.5 mg PRN Q2HR PRN PO PSYCHOSIS 12/10/20 22:45 12/21/20 04:02 Acetaminophen (Tylenol) 650 mg PRN Q6HRS PRN PO MILD PAIN / TEMP > 100.3'F 12/10/20 23:45 12/22/20 19:43 Multi-Ingredient Ointment (Analgesic [place]) 1 malik PRN QID PRN TP MUSCLE PAIN 12/10/20 23:45 Al Hydroxide/Mg Hydroxide (Mylanta Plus Xs) 15 ml PRN AFTMEALHC PRN PO DYSPEPSIA 12/10/20 23:45 Magnesium Hydroxide (Milk Of Magnesia) 2,400 mg PRN QHS PRN PO CONSTIPATION 12/10/20 23:45 12/13/20 07:42 Galantamine Hydrobromide (Razadyne Er) 24 mg DAILY PO 12/11/20 09:00 12/23/20 09:55 Isosorbide Mononitrate (Imdur) 30 mg DAILY PO 12/11/20 09:00 12/23/20 09:56 Memantine (Namenda) 10 mg BID PO 12/11/20 09:00 12/23/20 20:30 Quetiapine Fumarate (SEROquel) 75 mg QHS PO 12/11/20 21:00 12/14/20 17:18 DC 12/13/20 20:22 Atorvastatin Calcium (Lipitor) 40 mg QHS PO 12/11/20 21:00 12/23/20 20:29 Pantoprazole Sodium (Protonix) 40 mg DAILYAC PO 12/11/20 07:30 12/23/20 09:56 Mirtazapine (Remeron) 7.5 mg QHS PO 12/11/20 21:00 12/12/20 17:36 DC 12/11/20 20:35 Trazodone HCl (Desyrel) 50 mg PRN QHS PRN PO INSOMNIA, MAY REPEAT X1 12/11/20 18:30 12/18/20 22:02 Mirtazapine (Remeron) 15 mg QHS PO 12/12/20 21:00 12/19/20 17:26 DC 12/18/20 20:24 Quetiapine Fumarate (SEROquel) 100 mg QHS PO 12/14/20 21:00 12/22/20 19:24 DC 12/21/20 20:53 Amitriptyline HCl (Elavil) 25 mg QHS PO 12/19/20 21:00 12/23/20 20:29 Sertraline HCl (Zoloft) 25 mg DAILY PO 12/20/20 09:00 12/22/20 09:00 DC 12/22/20 08:48 Sertraline HCl (Zoloft) 50 mg DAILY PO 12/23/20 09:00 12/23/20 09:56 Quetiapine Fumarate (SEROquel) 50 mg HS PO 12/22/20 21:00 12/23/20 20:29 Current Medications Medications (Trade) Dose Ordered Sig/Ashish Route PRN Reason Start Time Stop Time Status Last Admin Dose Admin Sertraline HCl (Zoloft) 50 mg DAILY PO 12/23/20 09:00 12/23/20 09:56 Quetiapine Fumarate (SEROquel) 50 mg HS PO 12/22/20 21:00 12/23/20 20:29 I have reviewed the current psychotropics carefully including drug interactions. Risk benefit ratio favors no change other than as noted in my dictated progress note. 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
[2020-12-24 06:20] VITALS: BP 123/79
--- NOTE | 2020-12-24 07:53 | PDOC ---
Exam Note: Jaquan Note: This note is a late entry for 12/23/2020 covers elements not covered in my initial note. Subjective: The patient was seen face to face in the evening of 12/23/2020 with Luz Elena TORRE, discussed and reviewed the chart. She slept 6-3/4 hours previous night. The patient remains disorganized, wandering, but not walking backwards or leaning backwards like she was doing yesterday. This is improved since we reduced Seroquel from 100 mg h.s. down to 50 mg h.s. Review of Systems: No CV, , pulmonary, eye, ENT system symptoms on review. Reliability poor. Mental Status Exam: The patient is oriented to herself. Insight and judgment, recent and remote memory, attention and concentration, fund of knowledge is poor consistent with her diagnosis. Laboratory Data: Reviewed. Impression: Major neurocognitive disorder Alzheimer vascular with delusion, depression, behavioral disturbance. Anxiety disorder unspecified. Impulse control disorder unspecified. Plan: No change from initial note. Assessment: Vital Signs/I&O: Vital Signs Date Time Temp Pulse Resp B/P (MAP) Pulse Ox O2 Delivery O2 Flow Rate FiO2 12/24/20 06:20 98.4 67 16 123/79 (94) 96 12/23/20 05:50 Room Air I & O 12/23/20 12/23/20 12/24/20 14:59 22:59 06:59 Intake Total 340 ml 480 ml Balance 340 ml 480 ml Current Medications: Meds: Current Medications Medications (Trade) Dose Ordered Sig/Ashish Route PRN Reason Start Time Stop Time Status Last Admin Dose Admin Olanzapine (ZyPREXA ZYDIS) 2.5 mg PRN Q2HR PRN PO PSYCHOSIS 12/10/20 22:45 12/21/20 04:02 Acetaminophen (Tylenol) 650 mg PRN Q6HRS PRN PO MILD PAIN / TEMP > 100.3'F 12/10/20 23:45 12/22/20 19:43 Multi-Ingredient Ointment (Analgesic [place]) 1 malik PRN QID PRN TP MUSCLE PAIN 12/10/20 23:45 Al Hydroxide/Mg Hydroxide (Mylanta Plus Xs) 15 ml PRN AFTMEALHC PRN PO DYSPEPSIA 12/10/20 23:45 Magnesium Hydroxide (Milk Of Magnesia) 2,400 mg PRN QHS PRN PO CONSTIPATION 12/10/20 23:45 12/13/20 07:42 Galantamine Hydrobromide (Razadyne Er) 24 mg DAILY PO 12/11/20 09:00 12/23/20 09:55 Isosorbide Mononitrate (Imdur) 30 mg DAILY PO 12/11/20 09:00 12/23/20 09:56 Memantine (Namenda) 10 mg BID PO 12/11/20 09:00 12/23/20 20:30 Quetiapine Fumarate (SEROquel) 75 mg QHS PO 12/11/20 21:00 12/14/20 17:18 DC 12/13/20 20:22 Atorvastatin Calcium (Lipitor) 40 mg QHS PO 12/11/20 21:00 12/23/20 20:29 Pantoprazole Sodium (Protonix) 40 mg DAILYAC PO 12/11/20 07:30 12/23/20 09:56 Mirtazapine (Remeron) 7.5 mg QHS PO 12/11/20 21:00 12/12/20 17:36 DC 12/11/20 20:35 Trazodone HCl (Desyrel) 50 mg PRN QHS PRN PO INSOMNIA, MAY REPEAT X1 12/11/20 18:30 12/18/20 22:02 Mirtazapine (Remeron) 15 mg QHS PO 12/12/20 21:00 12/19/20 17:26 DC 12/18/20 20:24 Quetiapine Fumarate (SEROquel) 100 mg QHS PO 12/14/20 21:00 12/22/20 19:24 DC 12/21/20 20:53 Amitriptyline HCl (Elavil) 25 mg QHS PO 12/19/20 21:00 12/23/20 20:29 Sertraline HCl (Zoloft) 25 mg DAILY PO 12/20/20 09:00 12/22/20 09:00 DC 12/22/20 08:48 Sertraline HCl (Zoloft) 50 mg DAILY PO 12/23/20 09:00 12/23/20 09:56 Quetiapine Fumarate (SEROquel) 50 mg HS PO 12/22/20 21:00 12/23/20 20:29 Current Medications Medications (Trade) Dose Ordered Sig/Ashish Route PRN Reason Start Time Stop Time Status Last Admin Dose Admin Sertraline HCl (Zoloft) 50 mg DAILY PO 12/23/20 09:00 12/23/20 09:56 I have reviewed the current psychotropics carefully including drug interactions. Risk benefit ratio favors no change other than as noted in my dictated progress note. 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
[2020-12-24] MEDS: SERTRALINE 50 MG TABLET. PO SCH (08:06)
[2020-12-24] MEDS: ISOSORBIDE MONONITRATE ER 30 MG TAB.ER.24H PO SCH (08:06)
[2020-12-24] MEDS: GALANTAMINE 24 MG PO SCH (08:06)
[2020-12-24] MEDS: MEMANTINE 10 MG TABLET. PO SCH ×2 (08:06→20:44)
[2020-12-24] MEDS: PANTOPRAZOLE 40 MG TABLET. PO SCH (08:06)
[2020-12-24 08:34] LABS: BASO % 1 % (0-3); EOS # 0.2 x10^3/uL (0.0-0.7); EOS % 3 % (0-3); HEMATOCRIT 42.8 % (36.0-47.0); HEMOGLOBIN 14.1 g/dL (12.0-15.5); LYMPH # 1.8 x10^3/uL (1.0-4.8); LYMPH % 33 % (24-48); MEAN CORPUSCULAR HEMOGLOBIN 31 pg (25-35); MEAN CORPUSCULAR HGB CONC 33 g/dL (31-37); MEAN CORPUSCULAR VOLUME 93 fL (79-100); MONO # 0.5 x10^3/uL (0.0-1.1); MONO % 10 % (0-9); NEUT # 2.8 x10^3uL (1.8-7.7); NEUT % 53 % (31-73); PLATELET COUNT 223 x10^3/uL (140-400); RED BLOOD COUNT 4.59 x10^6/uL (3.50-5.40); RED CELL DISTRIBUTION WIDTH 14.3 % (11.5-14.5); WHITE BLOOD COUNT 5.3 x10^3/uL (4.0-11.0)
[2020-12-24 08:53] LABS: ALBUMIN 3.8 g/dL (3.4-5.0); ALBUMIN/GLOBULIN RATIO 1.1 (1.0-1.7); CALCIUM 9.4 mg/dL (8.5-10.1); CREATININE 0.8 mg/dL (0.6-1.0); GFR 70.3; POTASSIUM 3.7 mmol/L (3.5-5.1); TOTAL BILIRUBIN 0.6 mg/dL (0.2-1.0); TOTAL PROTEIN 7.2 g/dL (6.4-8.2)
--- NOTE | 2020-12-24 09:01 | NUR ---
Patient calm and cooperative. Patient took medication crushed with no resistance. Patient wandering around pleasantly interacting with peers.
--- NOTE | 2020-12-24 12:11 | NUR ---
Patient had a witness fall in the dining room. Patient fell forward hitting her chest on a chair before landing on the ground. Patient did not hit her head and has no c-spine tenderness. Patient does not have complaints of rib pain during assessment. Patient hips stable and patient able to walk with a smooth steady gait. Patient has no obvious deformities or bruising. Patient was tearful from the initial shock of falling. Patient is currently calm and willing to continue to eat lunch. Dr. Crowder notified of fall and no new orders needed at this time. Family to be notified.
[2020-12-24 15:49] VITALS: BP 130/76
--- NOTE | 2020-12-24 17:45 | RAD ---
Two-view chest dated 12/24/2020. No comparison available. Clinical data indication: Right-sided Pain after injury. FINDINGS: PA and lateral views obtained. Heart and mediastinal contours within normal limits. Lungs are somewha t hyperinflated but otherwise clear. No consolidation or pleural effusion. No pneumothorax. No appare nt rib fracture. IMPRESSION: No acute radiographic abnormality. Electronically signed by: Ramiro Dawson MD (12/24/2020 5:42 PM) [facility]
[2020-12-24] MEDS: ATORVASTATIN CALCIUM 20 MG TABLET PO SCH (20:44)
[2020-12-24] MEDS: QUEtiapine 50 MG TABLET. PO SCH (20:44)
[2020-12-24] MEDS: AMITRIPTYLINE HCL 25 MG TABLET PO SCH (20:44)
--- NOTE | 2020-12-24 21:03 | PDOC ---
Exam Note: Jaquan Note: Please also refer to the separate dictated note~for this date of service dictated separately.~Patient seen individually. Discussed the patient with Nursing staff reviewed the chart.~Reviewed interim history and current functioning. Reviewed vital signs,~Labs/ Radiology~and current medications noted below. Continue current treatment with the changes noted in the dictated addendum note Assessment: Vital Signs/I&O: Vital Signs Date Time Temp Pulse Resp B/P (MAP) Pulse Ox O2 Delivery O2 Flow Rate FiO2 12/24/20 15:49 97.4 67 16 130/76 (94) 98 Room Air I & O 12/23/20 12/23/20 12/24/20 15:00 23:00 07:00 Intake Total 340 ml 480 ml Balance 340 ml 480 ml Labs: Laboratory Tests Test 12/24/20 07:54 White Blood Count 5.3 x10^3/uL (4.0-11.0) Red Blood Count 4.59 x10^6/uL (3.50-5.40) Hemoglobin 14.1 g/dL (12.0-15.5) Hematocrit 42.8 % (36.0-47.0) Mean Corpuscular Volume 93 fL (79-100) Mean Corpuscular Hemoglobin 31 pg (25-35) Mean Corpuscular Hemoglobin Concent 33 g/dL (31-37) Red Cell Distribution Width 14.3 % (11.5-14.5) Platelet Count 223 x10^3/uL (140-400) Neutrophils (%) (Auto) 53 % (31-73) Lymphocytes (%) (Auto) 33 % (24-48) Monocytes (%) (Auto) 10 % (0-9) H Eosinophils (%) (Auto) 3 % (0-3) Basophils (%) (Auto) 1 % (0-3) Neutrophils # (Auto) 2.8 x10^3uL (1.8-7.7) Lymphocytes # (Auto) 1.8 x10^3/uL (1.0-4.8) Monocytes # (Auto) 0.5 x10^3/uL (0.0-1.1) Eosinophils # (Auto) 0.2 x10^3/uL (0.0-0.7) Basophils # (Auto) 0.0 x10^3/uL (0.0-0.2) Sodium Level 144 mmol/L (136-145) Potassium Level 3.7 mmol/L (3.5-5.1) Chloride Level 109 mmol/L (98-107) H Carbon Dioxide Level 26 mmol/L (21-32) Anion Gap 9 (6-14) Blood Urea Nitrogen 15 mg/dL (7-20) Creatinine 0.8 mg/dL (0.6-1.0) Estimated GFR (Cockcroft-Gault) 70.3 BUN/Creatinine Ratio 19 (6-20) Glucose Level 97 mg/dL (70-99) Calcium Level 9.4 mg/dL (8.5-10.1) Total Bilirubin 0.6 mg/dL (0.2-1.0) Aspartate Amino Transferase (AST) 28 U/L (15-37) Alanine Aminotransferase (ALT) 40 U/L (14-59) Alkaline Phosphatase 117 U/L (46-116) H Total Protein 7.2 g/dL (6.4-8.2) Albumin 3.8 g/dL (3.4-5.0) Albumin/Globulin Ratio 1.1 (1.0-1.7) Current Medications: Meds: Laboratory Tests Test 12/24/20 07:54 White Blood Count 5.3 x10^3/uL Red Blood Count 4.59 x10^6/uL Hemoglobin 14.1 g/dL Hematocrit 42.8 % Mean Corpuscular Volume 93 fL Mean Corpuscular Hemoglobin 31 pg Mean Corpuscular Hemoglobin Concent 33 g/dL Red Cell Distribution Width 14.3 % Platelet Count 223 x10^3/uL Neutrophils (%) (Auto) 53 % Lymphocytes (%) (Auto) 33 % Monocytes (%) (Auto) 10 % Eosinophils (%) (Auto) 3 % Basophils (%) (Auto) 1 % Neutrophils # (Auto) 2.8 x10^3uL Lymphocytes # (Auto) 1.8 x10^3/uL Monocytes # (Auto) 0.5 x10^3/uL Eosinophils # (Auto) 0.2 x10^3/uL Basophils # (Auto) 0.0 x10^3/uL Sodium Level 144 mmol/L Potassium Level 3.7 mmol/L Chloride Level 109 mmol/L Carbon Dioxide Level 26 mmol/L Anion Gap 9 Blood Urea Nitrogen 15 mg/dL Creatinine 0.8 mg/dL Estimated GFR (Cockcroft-Gault) 70.3 BUN/Creatinine Ratio 19 Glucose Level 97 mg/dL Calcium Level 9.4 mg/dL Total Bilirubin 0.6 mg/dL Aspartate Amino Transf (AST/SGOT) 28 U/L Alanine Aminotransferase (ALT/SGPT) 40 U/L Alkaline Phosphatase 117 U/L Total Protein 7.2 g/dL Albumin 3.8 g/dL Albumin/Globulin Ratio 1.1 Current Medications Medications (Trade) Dose Ordered Sig/Ashish Route PRN Reason Start Time Stop Time Status Last Admin Dose Admin Olanzapine (ZyPREXA ZYDIS) 2.5 mg PRN Q2HR PRN PO PSYCHOSIS 12/10/20 22:45 12/21/20 04:02 Acetaminophen (Tylenol) 650 mg PRN Q6HRS PRN PO MILD PAIN / TEMP > 100.3'F 12/10/20 23:45 12/22/20 19:43 Multi-Ingredient Ointment (Analgesic [place]) 1 malik PRN QID PRN TP MUSCLE PAIN 12/10/20 23:45 Al Hydroxide/Mg Hydroxide (Mylanta Plus Xs) 15 ml PRN AFTMEALHC PRN PO DYSPEPSIA 12/10/20 23:45 Magnesium Hydroxide (Milk Of Magnesia) 2,400 mg PRN QHS PRN PO CONSTIPATION 12/10/20 23:45 12/13/20 07:42 Galantamine Hydrobromide (Razadyne Er) 24 mg DAILY PO 12/11/20 09:00 12/24/20 08:06 Isosorbide Mononitrate (Imdur) 30 mg DAILY PO 12/11/20 09:00 12/24/20 08:06 Memantine (Namenda) 10 mg BID PO 12/11/20 09:00 12/24/20 20:44 Quetiapine Fumarate (SEROquel) 75 mg QHS PO 12/11/20 21:00 12/14/20 17:18 DC 12/13/20 20:22 Atorvastatin Calcium (Lipitor) 40 mg QHS PO 12/11/20 21:00 12/24/20 20:44 Pantoprazole Sodium (Protonix) 40 mg DAILYAC PO 12/11/20 07:30 12/24/20 08:06 Mirtazapine (Remeron) 7.5 mg QHS PO 12/11/20 21:00 12/12/20 17:36 DC 12/11/20 20:35 Trazodone HCl (Desyrel) 50 mg PRN QHS PRN PO INSOMNIA, MAY REPEAT X1 12/11/20 18:30 12/18/20 22:02 Mirtazapine (Remeron) 15 mg QHS PO 12/12/20 21:00 12/19/20 17:26 DC 12/18/20 20:24 Quetiapine Fumarate (SEROquel) 100 mg QHS PO 12/14/20 21:00 12/22/20 19:24 DC 12/21/20 20:53 Amitriptyline HCl (Elavil) 25 mg QHS PO 12/19/20 21:00 12/24/20 20:44 Sertraline HCl (Zoloft) 25 mg DAILY PO 12/20/20 09:00 12/22/20 09:00 DC 12/22/20 08:48 Sertraline HCl (Zoloft) 50 mg DAILY PO 12/23/20 09:00 12/24/20 08:06 Quetiapine Fumarate (SEROquel) 50 mg HS PO 12/22/20 21:00 12/24/20 20:44 I have reviewed the current psychotropics carefully including drug interactions. Risk benefit ratio favors no change other than as noted in my dictated progress note. 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
[2020-12-24] MEDS: ACETAMINOPHEN 325 MG TABLET PO PRN (21:24)
--- NOTE | 2020-12-25 02:37 | NUR ---
Last evening pt walked around the unit and was pleasant and social. She remains confused with rambling speech and is redirectable as needed. Meds were given crushed in applesauce, she mentioned the terrible taste but did not spit it out. After going to bed she complained of pain indicating rt side and chest. PRN tylenol was given and she soon settled and has been sleeping since.
[2020-12-25 05:39] VITALS: BP 114/74
--- NOTE | 2020-12-25 06:37 | NUR ---
PRN tylenol given for pain rt side and chest.
[2020-12-25] MEDS: SERTRALINE 50 MG TABLET. PO SCH (08:05)
[2020-12-25] MEDS: ISOSORBIDE MONONITRATE ER 30 MG TAB.ER.24H PO SCH (08:05)
[2020-12-25] MEDS: PANTOPRAZOLE 40 MG TABLET. PO SCH (08:06)
[2020-12-25] MEDS: MEMANTINE 10 MG TABLET. PO SCH ×2 (08:06→19:35)
[2020-12-25] MEDS: GALANTAMINE 24 MG PO SCH (08:06)
--- NOTE | 2020-12-25 08:41 | NUR ---
Patient calm and cooperative. Patient took medication crushed with no resistance. Patient wandering around pleasantly interacting with peers.
[2020-12-25] MEDS: ACETAMINOPHEN 325 MG TABLET PO PRN ×2 (11:37→19:35)
[2020-12-25 16:25] VITALS: BP 110/72
[2020-12-25] MEDS: ATORVASTATIN CALCIUM 20 MG TABLET PO SCH (19:35)
[2020-12-25] MEDS: AMITRIPTYLINE HCL 25 MG TABLET PO SCH (19:35)
[2020-12-25] MEDS: CEPHALEXIN 250 MG CAPSULE PO SCH (19:37)
[2020-12-25] MEDS: QUEtiapine 50 MG TABLET. PO SCH (19:49)
--- NOTE | 2020-12-25 19:49 | NUR ---
patient is listing to the left while walking. She appears unsteady and has been using the handrail and peers for support when ambulating. Patient assisted to chair to sit down by staff.
--- NOTE | 2020-12-25 21:34 | PDOC ---
Exam Note: Jaquan Note: Please also refer to the separate dictated note~for this date of service dictated separately.~Patient seen individually. Discussed the patient with Nursing staff reviewed the chart.~Reviewed interim history and current functioning. Reviewed vital signs,~Labs/ Radiology~and current medications noted below. Continue current treatment with the changes noted in the dictated addendum note Assessment: Vital Signs/I&O: Vital Signs Date Time Temp Pulse Resp B/P (MAP) Pulse Ox O2 Delivery O2 Flow Rate FiO2 12/25/20 16:25 97.8 85 18 110/72 (85) 95 Room Air I & O 12/24/20 12/24/20 12/25/20 15:00 23:00 07:00 Intake Total 360 ml 360 ml Balance 360 ml 360 ml Current Medications: Meds: Current Medications Medications (Trade) Dose Ordered Sig/Ashish Route PRN Reason Start Time Stop Time Status Last Admin Dose Admin Cephalexin HCl (Keflex) 500 mg TID PO 12/25/20 21:00 12/30/20 21:00 12/25/20 19:37 I have reviewed the current psychotropics carefully including drug interactions. Risk benefit ratio favors no change other than as noted in my dictated progress note. Diagnosis: Problems: (1) Person under investigation for COVID-19 (2) Dementia with behavioral disturbance (3) Major neurocognitive disorder (4) Impulse control disorder, unspecified (5) Anxiety disorder, unspecified (6) Dementia, vascular, with depression (7) Dementia, vascular, with delusions (8) Dementia in Alzheimer's disease with depression (9) Dementia in Alzheimer's disease with delusions ION NAVARRETE MD Dec 25, 2020 21:34
--- NOTE | 2020-12-25 23:00 | NUR ---
Patient had fallen yesterday and points to chest and says "this hurts". PRN tylenol given for pain. Patient noted to be sitting at [facility] station with a peer. Patient appeared to have a more steady gait after taking pain medication. She remains intrusive and is oriented only to self. She does not answer questions appropriately when asked. No combative behaviors noted thus far this shift.
[2020-12-26] MEDS: ACETAMINOPHEN 325 MG TABLET PO PRN ×2 (05:42→21:01)
[2020-12-26 06:00] VITALS: BP 132/73
--- NOTE | 2020-12-26 06:58 | PN ---
DATE: 12/25/2020 PSYCHIATRIC PROGRESS NOTE This late entry date of service 12/25/2020 covers elements not covered in my initial note. I met with the patient evening of 12/25/2020. SUBJECTIVE: Per YELITZA Orosco, the patient slept 7 hours previous night. The patient remains confused, wandering the hallways, does redirect. The patient had a fall and is complaining of some pain, but still able to ambulate reasonably. REVIEW OF SYSTEMS: No CV, , pulmonary, eye, ENT system symptoms on review. Reliability poor. MENTAL STATUS EXAM: Oriented to herself. Insight, judgment, recent and remote memory, attention, concentration, fund of knowledge poor, consistent with her diagnoses. IMPRESSION: Major neurocognitive disorder; Alzheimer; vascular with delusion; depression; behavioral disturbance; anxiety disorder, unspecified; impulse control disorder, unspecified. PLAN: I have carefully reviewed the patient's current psychotropics. Risk/benefit ratio favors no change at this time. We will maintain Namenda, Seroquel, Razadyne ER, Zoloft at current dosage along with amitriptyline 25 mg at bedtime and she is sleeping better on this dosage. Adjust further as clinically indicated. ION NAVARRETE MD DR: SHARA/eli JOB#: [id number] / [id number]
[2020-12-26] MEDS: MEMANTINE 10 MG TABLET. PO SCH ×2 (08:45→21:00)
[2020-12-26] MEDS: PANTOPRAZOLE 40 MG TABLET. PO SCH (08:45)
[2020-12-26] MEDS: CEPHALEXIN 250 MG CAPSULE PO SCH ×3 (08:45→21:00)
[2020-12-26] MEDS: ISOSORBIDE MONONITRATE ER 30 MG TAB.ER.24H PO SCH (08:45)
[2020-12-26] MEDS: SERTRALINE 50 MG TABLET. PO SCH (08:45)
[2020-12-26] MEDS: GALANTAMINE 24 MG PO SCH (08:46)
--- NOTE | 2020-12-26 12:37 | TX PLAN ---
Interdisciplinary Tx Plan Admission Information Dec 10, 2020 at 21:00 Legal Status (on Admission): Voluntary, DPOA DPOA/Guardian Name: Alma Waters-daughter Contact Other Contact Name: Alma Waters Other Contact Verified Code Status: DNR Allergies: Coded Allergies: diphenhydramine (Verified Allergy, Unknown, 12/09/20) Estimated Length of Stay: 14 Diagnoses Primary Diagnosis: Major neurocognitive disorder, vascular Alzheimer's, with delusions, depression, BD Anxiety disorder unspecified Impulse control disorder Reasons for Admission: Aggressive, Delusions, Agitated, Sig. Change Sleep, Angry, Combative, Suspicious/paranoid, Confusion/Disoriented, Poor impulse control Problem in Patient's Words: Per Natacha, "I don't know." Family is having difficulty managing Natacha in their homes. They are considering placement but do not think Natacha will qualify for [facility]. Family is to discuss with an divorce attorney. Additional Admission Comments: Per intake record, insomnia, tries to elope and has eloped from the home, combative with daughters, hits and fights, spits medications on the floor, pulls daughters hair, bites, beligerent, and thinks she's being stolen from. Problems Active Problems: Aggressive Confused Paranoid Combative Intrusive Poor sleep Wandering Inactive Problems: Adequate meal intakes Medication compliant Pt Strengths/Limitations Ability for [place]: Poor Cognitive Functioning/Ability: Poor Communication Skills/Ability: Fair Financial Resources: Fair Insight/Judgement: Poor Intellectual Ability: Fair Physical Health: Fair Social Skills: Fair Stability in Family: Fair Verbal Skills: Fair Discharge Criteria Discharge Criteria: Adequate arrangements @DC, Improved behavior, Improved mood/thought Preliminary Discharge Plan Preliminary DC Plan: Placement Needed, Home Other Arrangements: Home with family versus placement Special Precautions Special Precautions: Agitation/Assault Fall Risk: High Initial D/C Plan Home with family versus placement Identified Discharge Needs: Family is currently seeking legal assistance to determine Natacha's financial status. They may seek placement but family is not in agreement about d/c plan. Currently Utilized Resources Currently Utilized Resources/P: PCP Out patient psychiatry Family is applying for VA benefits Identified Problems/Hx/Goals Objectives/Short-Term Goals Short Term Goals: Control abnormal behavior, Dec. Aggression, Dec. Outbursts, Medication Stabilization, Monitor Med Effects Short Term Goals in Patient's: Per Natacha, "I don't know." Interventions/Frequency Staff Interventions/Frequency&: Nursing to provide routine safety checks, medication administration, and adl assistance. Psychiatry to see three times weekly. SW to see twice weekly. Recreational and SW groups as Natacha is willing to attend. History Vocational History: Natacha worked as a waiter/waitress tavern, worked in retail, was a [employer], and a elementary school librarian. Social: Natacha collected Rita dolls and likes Jean Paul. Education: Natacha attended school thru to 10th grade. Community Follow-up PCP Out patient psychiatry Possible memory care placement, family to decide Community Provider/Family Inpu: Treatment team meeting was held on 12/12/20 and LEN Marquez/bhavin, was involved via phone. journal entry audit clerk of treatment plan was completed on 12/13/20. Treatment Plan Explained Patient/Senior Ui U[employer] Developer had this treatment plan explained to him/her as indicated by the signature below and has been given the opportunity to ask questions and make suggestions: Date: Patient/Senior Ui U[employer] Developer Signature: Status Update Update WEEKLY NOTE/UPDATE: Natacha is averaging 65% of meal intakes and 6.5 hours of sleep at night. She is pleasantly confused and wanders about the unit. Staff provide re-direction as needed as Natacha wanders into other patients rooms. She has been cooperative with adl's and takes her medications crushed in pudding. She has been accepted at [facility] memory care. SW will continue to support with d/c planning. Alma, daughter, participated in team meeting via phone. MACK LOMBARDO Dec 26, 2020 12:37
--- NOTE | 2020-12-26 13:08 | NUR ---
Natacha was declined for placement at [facility]. Discussion held with LEN Marquez, and decision was made to proceed with placement at [facility]. VERONIKA contacted Willian Quiñones community development director, who reported being able to accept Natacha on 12/29/20. Chetna is to reach out to Alma to complete admission paperwork. [facility] is currently without a local combination truck driver so family or outside transportation company will have to transport Natacha on 12/29/20. VERONIKA will continue to coordinate with all parties on upcoming discharge.
--- NOTE | 2020-12-26 14:20 | NUR ---
WEEKLY ACTIVITY THERAPY NOTE Date of Admission: 12/10/2020 Date of AT Assessment: 12/13/20 Precipitating behaviors that initiated intake and admission: pulling daughter's hair, bites daughter, belligerent, combative, spits medication on floor Goal aimed: to increase engagement/ sensory stimulation Initial Goal: Pt. will participate in at least five individual Activity Therapy sessions before discharge. Goal changed 12/19: Pt. will participate in at least five individual or Activity Therapy group sessions before discharge. Weekly progress towards goal: 12/09 (12/23-Bingo, 12/25-gospel/ sermon) Group participation level: Weekly highlights: singing along with Gospel songs on Saturday Behaviors observed: wandering, pleasantly confused, enjoys snacks/ drinks, closes eyes often when sitting in group, social often hand in hand with female peers wandering Plan: no change to goal Beneficial adaptations: potentially sensory stimulation
[2020-12-26 15:37] VITALS: BP 123/73
--- NOTE | 2020-12-26 17:44 | NUR ---
Patient in dining carey at time of assessment. Patient taken to room for physical assessment. Hard to assess as patient has hard time following instructions. Patient is alert and oriented to self only. She is pleasantly confused and forgetful. Patient still c/o pain in ribs on right side. No visible bruising or redness. Tender to touch and when patient moves arms up over head she complains it hurts her. No further complaints or concerns at this time. Patient continues to be intrusive and needs to be redirected from other patient rooms. She is very friendly with other patients too and needs to be redirected at times from them. Otherwise no big changes. Patient continues to behave the same.
[2020-12-26] MEDS: ATORVASTATIN CALCIUM 20 MG TABLET PO SCH (21:00)
[2020-12-26] MEDS: QUEtiapine 50 MG TABLET. PO SCH (21:00)
[2020-12-26] MEDS: AMITRIPTYLINE HCL 25 MG TABLET PO SCH (21:00)
--- NOTE | 2020-12-26 22:00 | PDOC ---
Exam Note: Jaquan Note: Please also refer to the separate dictated note~for this date of service dictated separately.~Patient seen individually. Discussed the patient with Nursing staff reviewed the chart.~Reviewed interim history and current functioning. Reviewed vital signs,~Labs/ Radiology~and current medications noted below. Continue current treatment with the changes noted in the dictated addendum note Assessment: Vital Signs/I&O: Vital Signs Date Time Temp Pulse Resp B/P (MAP) Pulse Ox O2 Delivery O2 Flow Rate FiO2 12/26/20 15:37 97.8 83 20 123/73 (90) 96 Room Air I & O 12/25/20 12/25/20 12/26/20 15:00 23:00 07:00 Intake Total 480 ml 360 ml Balance 480 ml 360 ml Current Medications: I have reviewed the current psychotropics carefully including drug interactions. Risk benefit ratio favors no change other than as noted in my dictated progress note. 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
--- NOTE | 2020-12-27 00:17 | NUR ---
Patient walks in the hallway and enters and exits peers rooms. She is able to be verbally redirected. Patient was compliant with HS medications taken with water, whole, two at a time from a spoon. Patient restless, nurse sat with patient in south hallway and gave her a snack at 2200. Patient became tired and was ready for bed. Patient has not been aggressive or agitated this shift.
[2020-12-27 05:50] VITALS: BP 120/69
--- NOTE | 2020-12-27 06:57 | NUR ---
Patient swabbed for discharge COVID per facility request. Discharge scheduled for 12/29.
[2020-12-27] MEDS: GALANTAMINE 24 MG PO SCH (07:50)
[2020-12-27] MEDS: SERTRALINE 50 MG TABLET. PO SCH (07:50)
[2020-12-27] MEDS: CEPHALEXIN 250 MG CAPSULE PO SCH ×3 (07:51→20:02)
[2020-12-27] MEDS: MEMANTINE 10 MG TABLET. PO SCH ×2 (07:51→20:01)
[2020-12-27] MEDS: ISOSORBIDE MONONITRATE ER 30 MG TAB.ER.24H PO SCH (07:51)
[2020-12-27] MEDS: PANTOPRAZOLE 40 MG TABLET. PO SCH (07:52)
--- NOTE | 2020-12-27 08:20 | PDOC ---
Exam Note: Jaquan Note: This note is a late entry for 12/24/2020 covers elements not covered in my initial note. Subjective: The patient was seen face to face in the evening of 12/24/2020 with Аелксандр TORRE, discussed and reviewed the chart. She slept 6-3/4 hours previous night. She did fall forward today. Chest x-ray has been done. Dr. Crowder is following this. She remains confused, less agitated, wanders around the unit. Review of Systems: No CV, , pulmonary, eye, ENT system symptoms on review. Reliability poor. Mental Status Exam: The patient is oriented to herself. Insight and judgment, recent and remote memory, attention and concentration, fund of knowledge is poor consistent with her diagnosis. Laboratory Data: Reviewed. Impression: Major neurocognitive disorder Alzheimer vascular with delusion, depression, behavioral disturbance. Anxiety disorder unspecified. Impulse control disorder unspecified. Plan: No change from initial note. Assessment: Vital Signs/I&O: Vital Signs Date Time Temp Pulse Resp B/P (MAP) Pulse Ox O2 Delivery O2 Flow Rate FiO2 12/27/20 07:51 63 120/69 12/27/20 05:50 96.9 16 96 12/26/20 15:37 Room Air I & O 12/26/20 12/26/20 12/27/20 14:59 22:59 06:59 Intake Total 360 ml 480 ml Balance 360 ml 480 ml Current Medications: Meds: Current Medications Medications (Trade) Dose Ordered Sig/Ashish Route PRN Reason Start Time Stop Time Status Last Admin Dose Admin Olanzapine (ZyPREXA ZYDIS) 2.5 mg PRN Q2HR PRN PO PSYCHOSIS 12/10/20 22:45 12/21/20 04:02 Acetaminophen (Tylenol) 650 mg PRN Q6HRS PRN PO MILD PAIN / TEMP > 100.3'F 12/10/20 23:45 12/26/20 21:01 Multi-Ingredient Ointment (Analgesic [place]) 1 malik PRN QID PRN TP MUSCLE PAIN 12/10/20 23:45 Al Hydroxide/Mg Hydroxide (Mylanta Plus Xs) 15 ml PRN AFTMEALHC PRN PO DYSPEPSIA 12/10/20 23:45 Magnesium Hydroxide (Milk Of Magnesia) 2,400 mg PRN QHS PRN PO CONSTIPATION 12/10/20 23:45 12/13/20 07:42 Galantamine Hydrobromide (Razadyne Er) 24 mg DAILY PO 12/11/20 09:00 12/27/20 07:50 Isosorbide Mononitrate (Imdur) 30 mg DAILY PO 12/11/20 09:00 12/27/20 07:51 Memantine (Namenda) 10 mg BID PO 12/11/20 09:00 12/27/20 07:51 Quetiapine Fumarate (SEROquel) 75 mg QHS PO 12/11/20 21:00 12/14/20 17:18 DC 12/13/20 20:22 Atorvastatin Calcium (Lipitor) 40 mg QHS PO 12/11/20 21:00 12/26/20 21:00 Pantoprazole Sodium (Protonix) 40 mg DAILYAC PO 12/11/20 07:30 12/27/20 07:52 Mirtazapine (Remeron) 7.5 mg QHS PO 12/11/20 21:00 12/12/20 17:36 DC 12/11/20 20:35 Trazodone HCl (Desyrel) 50 mg PRN QHS PRN PO INSOMNIA, MAY REPEAT X1 12/11/20 18:30 12/18/20 22:02 Mirtazapine (Remeron) 15 mg QHS PO 12/12/20 21:00 12/19/20 17:26 DC 12/18/20 20:24 Quetiapine Fumarate (SEROquel) 100 mg QHS PO 12/14/20 21:00 12/22/20 19:24 DC 12/21/20 20:53 Amitriptyline HCl (Elavil) 25 mg QHS PO 12/19/20 21:00 12/26/20 21:00 Sertraline HCl (Zoloft) 25 mg DAILY PO 12/20/20 09:00 12/22/20 09:00 DC 12/22/20 08:48 Sertraline HCl (Zoloft) 50 mg DAILY PO 12/23/20 09:00 12/27/20 07:50 Quetiapine Fumarate (SEROquel) 50 mg HS PO 12/22/20 21:00 12/26/20 21:00 Cephalexin HCl (Keflex) 500 mg TID PO 12/25/20 21:00 12/30/20 21:00 12/27/20 07:51 I have reviewed the current psychotropics carefully including drug interactions. Risk benefit ratio favors no change other than as noted in my dictated progress note. Diagnosis: Problems: (1) Dementia with behavioral disturbance (2) Major neurocognitive disorder (3) Impulse control disorder, unspecified (4) Anxiety disorder, unspecified (5) Dementia, vascular, with depression (6) Dementia, vascular, with delusions (7) Dementia in Alzheimer's disease with depression (8) Dementia in Alzheimer's disease with delusions ION NAVARRETE MD Dec 27, 2020 08:20
--- NOTE | 2020-12-27 08:32 | NUR ---
Wound Care Wound Type/Assessment: patient seen per wound care consult. see wound assessment. patient has a DFU to the left heel, the wound appears to look like two fissures, these areas look like cracked dry skin on the heel. The areas were cleaned and recommendations of applying lotion to the feet daily with socks on. applied lotion and yellow socks on at this time. Treatment Recommendations/Plan: Recommendations of Lotion daily and socks Discharge Recommendations for dressings: Notified RN about the POC and wound care will continue to f/u for changes.
--- NOTE | 2020-12-27 09:48 | NUR ---
[facility] Social Work Discharge Planning Form Patient Name FELIPE LAMB Admit Date: 12/10/20 DISCHARGE PLAN Discharge Destination: [facility] Assessment: Waived at this time due to Covid pandemic Transportation: Family transport on 12/29/20 at 11am. Special Instructions/Notes: Upon arrival to [facility], arrange f/u appointments with house physician and house psychiatrist in 7-10 days. DISCHARGE TO FACILITY Facility: [facility] Address: [address] [place], [place] [id number] Contact Name: donell Quiñonessales account coordinator PCP: Dr. Moseley [phone], (fax) Psychiatrist: Facility provider
--- NOTE | 2020-12-27 11:32 | NUR ---
Pt has been complaint with assessment and medications which were crushed and mixed into applesauce. She voices no complaints or concerns at this time. She wanders frequently and has difficulty holding/maintaining a rational conversation with others. She is pleasantly confused, alert to self only. No SI/HI behaviors observed nor aggression towards others. Will pass on to the next shift.
[2020-12-27 15:49] VITALS: BP 112/74
[2020-12-27] MEDS: QUEtiapine 50 MG TABLET. PO SCH (20:01)
[2020-12-27] MEDS: ATORVASTATIN CALCIUM 20 MG TABLET PO SCH (20:02)
[2020-12-27] MEDS: AMITRIPTYLINE HCL 25 MG TABLET PO SCH (20:02)
--- NOTE | 2020-12-27 21:23 | PDOC ---
Exam Note: Jaquan Note: Please also refer to the separate dictated note~for this date of service dictated separately.~Patient seen individually. Discussed the patient with Nursing staff reviewed the chart.~Reviewed interim history and current functioning. Reviewed vital signs,~Labs/ Radiology~and current medications noted below. Continue current treatment with the changes noted in the dictated addendum note Assessment: Vital Signs/I&O: Vital Signs Date Time Temp Pulse Resp B/P (MAP) Pulse Ox O2 Delivery O2 Flow Rate FiO2 12/27/20 15:49 98.0 78 18 112/74 (87) 95 12/26/20 15:37 Room Air I & O 12/26/20 12/26/20 12/27/20 15:00 23:00 07:00 Intake Total 360 ml 480 ml Balance 360 ml 480 ml Labs: Laboratory Tests Test 12/27/20 05:30 Coronavirus (PCR) Not detected (Not Detected) Current Medications: Meds: Laboratory Tests Test 12/27/20 05:30 Coronavirus (PCR) Not detected Current Medications Medications (Trade) Dose Ordered Sig/Ashish Route PRN Reason Start Time Stop Time Status Last Admin Dose Admin Olanzapine (ZyPREXA ZYDIS) 2.5 mg PRN Q2HR PRN PO PSYCHOSIS 12/10/20 22:45 12/21/20 04:02 Acetaminophen (Tylenol) 650 mg PRN Q6HRS PRN PO MILD PAIN / TEMP > 100.3'F 12/10/20 23:45 12/26/20 21:01 Multi-Ingredient Ointment (Analgesic [place]) 1 malik PRN QID PRN TP MUSCLE PAIN 12/10/20 23:45 Al Hydroxide/Mg Hydroxide (Mylanta Plus Xs) 15 ml PRN AFTMEALHC PRN PO DYSPEPSIA 12/10/20 23:45 Magnesium Hydroxide (Milk Of Magnesia) 2,400 mg PRN QHS PRN PO CONSTIPATION 12/10/20 23:45 12/13/20 07:42 Galantamine Hydrobromide (Razadyne Er) 24 mg DAILY PO 12/11/20 09:00 12/27/20 07:50 Isosorbide Mononitrate (Imdur) 30 mg DAILY PO 12/11/20 09:00 12/27/20 07:51 Memantine (Namenda) 10 mg BID PO 12/11/20 09:00 12/27/20 20:01 Quetiapine Fumarate (SEROquel) 75 mg QHS PO 12/11/20 21:00 12/14/20 17:18 DC 12/13/20 20:22 Atorvastatin Calcium (Lipitor) 40 mg QHS PO 12/11/20 21:00 12/27/20 20:02 Pantoprazole Sodium (Protonix) 40 mg DAILYAC PO 12/11/20 07:30 12/27/20 07:52 Mirtazapine (Remeron) 7.5 mg QHS PO 12/11/20 21:00 12/12/20 17:36 DC 12/11/20 20:35 Trazodone HCl (Desyrel) 50 mg PRN QHS PRN PO INSOMNIA, MAY REPEAT X1 12/11/20 18:30 12/18/20 22:02 Mirtazapine (Remeron) 15 mg QHS PO 12/12/20 21:00 12/19/20 17:26 DC 12/18/20 20:24 Quetiapine Fumarate (SEROquel) 100 mg QHS PO 12/14/20 21:00 12/22/20 19:24 DC 12/21/20 20:53 Amitriptyline HCl (Elavil) 25 mg QHS PO 12/19/20 21:00 12/27/20 20:02 Sertraline HCl (Zoloft) 25 mg DAILY PO 12/20/20 09:00 12/22/20 09:00 DC 12/22/20 08:48 Sertraline HCl (Zoloft) 50 mg DAILY PO 12/23/20 09:00 12/27/20 18:27 DC 12/27/20 07:50 Quetiapine Fumarate (SEROquel) 50 mg HS PO 12/22/20 21:00 12/27/20 20:01 Cephalexin HCl (Keflex) 500 mg TID PO 12/25/20 21:00 12/30/20 21:00 12/27/20 20:02 Sertraline HCl (Zoloft) 75 mg DAILY PO 12/28/20 09:00 I have reviewed the current psychotropics carefully including drug interactions. Risk benefit ratio favors no change other than as noted in my dictated progress note. 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
--- NOTE | 2020-12-28 01:09 | NUR ---
Patient has been wandering in the halls and going in and out of peers rooms. She is easily distracted and redirectable verbally. Patient compliant with medications taken whole with water, she attempted to spit the antibiotics out because she stated that they "made the water taste bad in her mouth". Nurse was able to convince patient to swallow the medications. Patient is on Keflex for wound on L foot. Wound was evaluated by wound care team today. See their assessment in [place]. Patient noted to not be wearing socks tonight. Nurse encouraged patient to put socks on her feet but she refused.
[2020-12-28] MEDS ORDERED: AMIT25TA PO (03:38)
[2020-12-28] MEDS ORDERED: ACET325T21 PO (03:38)
[2020-12-28] MEDS ORDERED: CEPH500T PO (03:39)
[2020-12-28] MEDS ORDERED: MAG-19 PO (03:46)
[2020-12-28] MEDS ORDERED: MAGN24003 PO (03:47)
[2020-12-28] MEDS ORDERED: METH28OI2 TP (03:48)
[2020-12-28] MEDS ORDERED: OLAN5TAB99 PO (03:50)
[2020-12-28] MEDS ORDERED: SERT50TA PO (03:51)
[2020-12-28] MEDS ORDERED: TRAZ-120 PO (03:52)
[2020-12-28 06:17] VITALS: BP 124/74
--- NOTE | 2020-12-28 08:32 | PDOC ---
Exam Note: Jaquan Note: This note is a late entry for 12/26/2020 covers elements not covered in my initial note. Subjective: The patient was seen face to face in the morning of 12/26/2020 for a treatment team meeting with Sangita Martin, Edwige Hartley and Melissa (social work lecturer), Lashonda Jackson, activity therapy and Andreina TORRE, discussed and reviewed the chart. She slept 6-3/4 hours previous night. She remains confused, wandering the hallways. She may be accepted at [facility], refused at [facility]. Review of Systems: No CV, , pulmonary, eye, ENT system symptoms on review. R eliability poor. Mental Status Exam: The patient is oriented to herself. Insight and judgment, recent and remote memory, attention and concentration, fund of knowledge is poor consistent with her diagnosis. Laboratory Data: Reviewed. Impression: Major neurocognitive disorder Alzheimer vascular with delusion, depression, behavioral disturbance. Anxiety disorder unspecified. Impulse control disorder unspecified. Plan: No change from initial note. Assessment: Vital Signs/I&O: Vital Signs Date Time Temp Pulse Resp B/P (MAP) Pulse Ox O2 Delivery O2 Flow Rate FiO2 12/28/20 06:17 97.5 70 18 124/74 (91) 95 12/26/20 15:37 Room Air I & O 12/27/20 12/27/20 12/28/20 15:00 23:00 07:00 Intake Total 600 ml 290 ml Balance 600 ml 290 ml Current Medications: Meds: Current Medications Medications (Trade) Dose Ordered Sig/Ashish Route PRN Reason Start Time Stop Time Status Last Admin Dose Admin Olanzapine (ZyPREXA ZYDIS) 2.5 mg PRN Q2HR PRN PO PSYCHOSIS 12/10/20 22:45 12/21/20 04:02 Acetaminophen (Tylenol) 650 mg PRN Q6HRS PRN PO MILD PAIN / TEMP > 100.3'F 12/10/20 23:45 12/26/20 21:01 Multi-Ingredient Ointment (Analgesic [place]) 1 malik PRN QID PRN TP MUSCLE PAIN 12/10/20 23:45 Al Hydroxide/Mg Hydroxide (Mylanta Plus Xs) 15 ml PRN AFTMEALHC PRN PO DYSPEPSIA 12/10/20 23:45 Magnesium Hydroxide (Milk Of Magnesia) 2,400 mg PRN QHS PRN PO CONSTIPATION 12/10/20 23:45 12/13/20 07:42 Galantamine Hydrobromide (Razadyne Er) 24 mg DAILY PO 12/11/20 09:00 12/27/20 07:50 Isosorbide Mononitrate (Imdur) 30 mg DAILY PO 12/11/20 09:00 12/27/20 07:51 Memantine (Namenda) 10 mg BID PO 12/11/20 09:00 12/27/20 20:01 Quetiapine Fumarate (SEROquel) 75 mg QHS PO 12/11/20 21:00 12/14/20 17:18 DC 12/13/20 20:22 Atorvastatin Calcium (Lipitor) 40 mg QHS PO 12/11/20 21:00 12/27/20 20:02 Pantoprazole Sodium (Protonix) 40 mg DAILYAC PO 12/11/20 07:30 12/27/20 07:52 Mirtazapine (Remeron) 7.5 mg QHS PO 12/11/20 21:00 12/12/20 17:36 DC 12/11/20 20:35 Trazodone HCl (Desyrel) 50 mg PRN QHS PRN PO INSOMNIA, MAY REPEAT X1 12/11/20 18:30 12/18/20 22:02 Mirtazapine (Remeron) 15 mg QHS PO 12/12/20 21:00 12/19/20 17:26 DC 12/18/20 20:24 Quetiapine Fumarate (SEROquel) 100 mg QHS PO 12/14/20 21:00 12/22/20 19:24 DC 12/21/20 20:53 Amitriptyline HCl (Elavil) 25 mg QHS PO 12/19/20 21:00 12/27/20 20:02 Sertraline HCl (Zoloft) 25 mg DAILY PO 12/20/20 09:00 12/22/20 09:00 DC 12/22/20 08:48 Sertraline HCl (Zoloft) 50 mg DAILY PO 12/23/20 09:00 12/27/20 18:27 DC 12/27/20 07:50 Quetiapine Fumarate (SEROquel) 50 mg HS PO 12/22/20 21:00 12/27/20 20:01 Cephalexin HCl (Keflex) 500 mg TID PO 12/25/20 21:00 12/30/20 21:00 12/27/20 20:02 Sertraline HCl (Zoloft) 75 mg DAILY PO 12/28/20 09:00 I have reviewed the current psychotropics carefully including drug interactions. Risk benefit ratio favors no change other than as noted in my dictated progress note. 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
[2020-12-28] MEDS: PANTOPRAZOLE 40 MG TABLET. PO SCH (08:56)
[2020-12-28] MEDS: MEMANTINE 10 MG TABLET. PO SCH ×2 (08:57→20:57)
[2020-12-28] MEDS: CEPHALEXIN 250 MG CAPSULE PO SCH ×3 (08:57→20:57)
[2020-12-28] MEDS: ISOSORBIDE MONONITRATE ER 30 MG TAB.ER.24H PO SCH (08:57)
[2020-12-28] MEDS: GALANTAMINE 24 MG PO SCH (08:57)
[2020-12-28] MEDS: SERTRALINE 50 MG TABLET. PO SCH (08:57)
--- NOTE | 2020-12-28 09:00 | PDOC ---
Exam Note: Jaquan Note: This note is a late entry for 12/27/2020 covers elements not covered in my initial note. Subjective: The patient was seen face to face in the evening of 12/27/2020 with Luz Elena TORRE, discussed and reviewed the chart. She slept 6 hours previous night. She is wandering, intrusive, confused. Previous night she was wandering, did redirect out of another patients room. She was having right-sided chest pain since the fall. No further injury noted. She has been started on Keflex for foot infection. Review of Systems: No CV, , pulmonary, eye, ENT system symptoms on review. Reliability poor. Mental Status Exam: The patient is oriented to herself. Insight and judgment, recent and remote memory, attention and concentration, fund of knowledge is poor consistent with her diagnosis. Laboratory Data: Reviewed. Impression: Major neurocognitive disorder Alzheimer vascular with delusion, depression, behavioral disturbance. Anxiety disorder unspecified. Impulse control disorder unspecified. Plan: No change from initial note. Assessment: Vital Signs/I&O: Vital Signs Date Time Temp Pulse Resp B/P (MAP) Pulse Ox O2 Delivery O2 Flow Rate FiO2 12/28/20 08:57 70 124/74 12/28/20 06:17 97.5 18 95 12/26/20 15:37 Room Air I & O0 12/27/20 12/27/20 12/28/20 15:00 23:00 07:00 Intake Total 600 ml 290 ml Balance 600 ml 290 ml Current Medications: Meds: Current Medications Medications (Trade) Dose Ordered Sig/Ashish Route PRN Reason Start Time Stop Time Status Last Admin Dose Admin Olanzapine (ZyPREXA ZYDIS) 2.5 mg PRN Q2HR PRN PO PSYCHOSIS 12/10/20 22:45 12/21/20 04:02 Acetaminophen (Tylenol) 650 mg PRN Q6HRS PRN PO MILD PAIN / TEMP > 100.3'F 12/10/20 23:45 12/26/20 21:01 Multi-Ingredient Ointment (Analgesic [place]) 1 malik PRN QID PRN TP MUSCLE PAIN 12/10/20 23:45 Al Hydroxide/Mg Hydroxide (Mylanta Plus Xs) 15 ml PRN AFTMEALHC PRN PO DYSPEPSIA 12/10/20 23:45 Magnesium Hydroxide (Milk Of Magnesia) 2,400 mg PRN QHS PRN PO CONSTIPATION 12/10/20 23:45 12/13/20 07:42 Galantamine Hydrobromide (Razadyne Er) 24 mg DAILY PO 12/11/20 09:00 12/28/20 08:57 Isosorbide Mononitrate (Imdur) 30 mg DAILY PO 12/11/20 09:00 12/28/20 08:57 Memantine (Namenda) 10 mg BID PO 12/11/20 09:00 12/28/20 08:57 Quetiapine Fumarate (SEROquel) 75 mg QHS PO 12/11/20 21:00 12/14/20 17:18 DC 12/13/20 20:22 Atorvastatin Calcium (Lipitor) 40 mg QHS PO 12/11/20 21:00 12/27/20 20:02 Pantoprazole Sodium (Protonix) 40 mg DAILYAC PO 12/11/20 07:30 12/28/20 08:56 Mirtazapine (Remeron) 7.5 mg QHS PO 12/11/20 21:00 12/12/20 17:36 DC 12/11/20 20:35 Trazodone HCl (Desyrel) 50 mg PRN QHS PRN PO INSOMNIA, MAY REPEAT X1 12/11/20 18:30 12/18/20 22:02 Mirtazapine (Remeron) 15 mg QHS PO 12/12/20 21:00 12/19/20 17:26 DC 12/18/20 20:24 Quetiapine Fumarate (SEROquel) 100 mg QHS PO 12/14/20 21:00 12/22/20 19:24 DC 12/21/20 20:53 Amitriptyline HCl (Elavil) 25 mg QHS PO 12/19/20 21:00 12/27/20 20:02 Sertraline HCl (Zoloft) 25 mg DAILY PO 12/20/20 09:00 12/22/20 09:00 DC 12/22/20 08:48 Sertraline HCl (Zoloft) 50 mg DAILY PO 12/23/20 09:00 12/27/20 18:27 DC 12/27/20 07:50 Quetiapine Fumarate (SEROquel) 50 mg HS PO 12/22/20 21:00 12/27/20 20:01 Cephalexin HCl (Keflex) 500 mg TID PO 12/25/20 21:00 12/30/20 21:00 12/28/20 08:57 Sertraline HCl (Zoloft) 75 mg DAILY PO 12/28/20 09:00 12/28/20 08:57 Current Medications Medications (Trade) Dose Ordered Sig/Ashish Route PRN Reason Start Time Stop Time Status Last Admin Dose Admin Sertraline HCl (Zoloft) 75 mg DAILY PO 12/28/20 09:00 12/28/20 08:57 I have reviewed the current psychotropics carefully including drug interactions. Risk benefit ratio favors no change other than as noted in my dictated progress note. 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
[2020-12-28 16:08] VITALS: BP 126/56
[2020-12-28] MEDS: ATORVASTATIN CALCIUM 20 MG TABLET PO SCH (20:57)
[2020-12-28] MEDS: QUEtiapine 50 MG TABLET. PO SCH (20:57)
[2020-12-28] MEDS: AMITRIPTYLINE HCL 25 MG TABLET PO SCH (20:57)
--- NOTE | 2020-12-28 21:15 | PDOC ---
Exam Note: Jaquan Note: Please also refer to the separate dictated note~for this date of service dictated separately.~Patient seen individually. Discussed the patient with Nursing staff reviewed the chart.~Reviewed interim history and current functioning. Reviewed vital signs,~Labs/ Radiology~and current medications noted below. Continue current treatment with the changes noted in the dictated addendum note Assessment: Vital Signs/I&O: Vital Signs Date Time Temp Pulse Resp B/P (MAP) Pulse Ox O2 Delivery O2 Flow Rate FiO2 12/28/20 16:08 98.3 60 18 126/56 (79) 96 12/26/20 15:37 Room Air I & O 12/27/20 12/27/20 12/28/20 15:00 23:00 07:00 Intake Total 600 ml 290 ml Balance 600 ml 290 ml Current Medications: Meds: Current Medications Medications (Trade) Dose Ordered Sig/Ashish Route PRN Reason Start Time Stop Time Status Last Admin Dose Admin Olanzapine (ZyPREXA ZYDIS) 2.5 mg PRN Q2HR PRN PO PSYCHOSIS 12/10/20 22:45 12/28/20 13:12 Acetaminophen (Tylenol) 650 mg PRN Q6HRS PRN PO MILD PAIN / TEMP > 100.3'F 12/10/20 23:45 12/26/20 21:01 Multi-Ingredient Ointment (Analgesic [place]) 1 malik PRN QID PRN TP MUSCLE PAIN 12/10/20 23:45 Al Hydroxide/Mg Hydroxide (Mylanta Plus Xs) 15 ml PRN AFTMEALHC PRN PO DYSPEPSIA 12/10/20 23:45 Magnesium Hydroxide (Milk Of Magnesia) 2,400 mg PRN QHS PRN PO CONSTIPATION 12/10/20 23:45 12/13/20 07:42 Galantamine Hydrobromide (Razadyne Er) 24 mg DAILY PO 12/11/20 09:00 12/28/20 08:57 Isosorbide Mononitrate (Imdur) 30 mg DAILY PO 12/11/20 09:00 12/28/20 08:57 Memantine (Namenda) 10 mg BID PO 12/11/20 09:00 12/28/20 20:57 Quetiapine Fumarate (SEROquel) 75 mg QHS PO 12/11/20 21:00 12/14/20 17:18 DC 12/13/20 20:22 Atorvastatin Calcium (Lipitor) 40 mg QHS PO 12/11/20 21:00 12/28/20 20:57 Pantoprazole Sodium (Protonix) 40 mg DAILYAC PO 12/11/20 07:30 12/28/20 08:56 Mirtazapine (Remeron) 7.5 mg QHS PO 12/11/20 21:00 12/12/20 17:36 DC 12/11/20 20:35 Trazodone HCl (Desyrel) 50 mg PRN QHS PRN PO INSOMNIA, MAY REPEAT X1 12/11/20 18:30 12/18/20 22:02 Mirtazapine (Remeron) 15 mg QHS PO 12/12/20 21:00 12/19/20 17:26 DC 12/18/20 20:24 Quetiapine Fumarate (SEROquel) 100 mg QHS PO 12/14/20 21:00 12/22/20 19:24 DC 12/21/20 20:53 Amitriptyline HCl (Elavil) 25 mg QHS PO 12/19/20 21:00 12/28/20 20:57 Sertraline HCl (Zoloft) 25 mg DAILY PO 12/20/20 09:00 12/22/20 09:00 DC 12/22/20 08:48 Sertraline HCl (Zoloft) 50 mg DAILY PO 12/23/20 09:00 12/27/20 18:27 DC 12/27/20 07:50 Quetiapine Fumarate (SEROquel) 50 mg HS PO 12/22/20 21:00 12/28/20 20:57 Cephalexin HCl (Keflex) 500 mg TID PO 12/25/20 21:00 12/30/20 21:00 12/28/20 20:57 Sertraline HCl (Zoloft) 75 mg DAILY PO 12/28/20 09:00 12/28/20 08:57 Current Medications Medications (Trade) Dose Ordered Sig/Ashish Route PRN Reason Start Time Stop Time Status Last Admin Dose Admin Sertraline HCl (Zoloft) 75 mg DAILY PO 12/28/20 09:00 12/28/20 08:57 I have reviewed the current psychotropics carefully including drug interactions. Risk benefit ratio favors no change other than as noted in my dictated progress note. 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
[2020-12-29 05:46] VITALS: BP 136/81
[2020-12-29] MEDS: GALANTAMINE 24 MG PO SCH (07:41)
[2020-12-29] MEDS: CEPHALEXIN 250 MG CAPSULE PO SCH (07:41)
[2020-12-29 07:42] VITALS: BP 136/81
[2020-12-29] MEDS: SERTRALINE 50 MG TABLET. PO SCH (07:42)
[2020-12-29] MEDS: PANTOPRAZOLE 40 MG TABLET. PO SCH (07:42)
[2020-12-29] MEDS: MEMANTINE 10 MG TABLET. PO SCH (07:42)
[2020-12-29] MEDS: ISOSORBIDE MONONITRATE ER 30 MG TAB.ER.24H PO SCH (07:42)
--- NOTE | 2020-12-29 08:50 | PDOC ---
Exam Note: Jaquan Note: This note is a late entry for 12/28/2020 covers elements not covered in my initial note. Subjective: The patient was seen face to face in the evening of 12/28/2020 with Edvin TORRE, discussed and reviewed the chart. She slept 6-3/4 hours previous night. She remains confused, has been wandering. Review of Systems: No CV, , pulmonary, eye, ENT system symptoms on review. Reliability poor. Mental Status Exam: The patient is oriented to herself. Insight and judgment, recent and remote memory, attention and concentration, fund of knowledge is poor consistent with her diagnosis. Laboratory Data: Reviewed. Impression: Major neurocognitive disorder Alzheimer vascular with delusion, de pression, behavioral disturbance. Anxiety disorder unspecified. Impulse control disorder unspecified. Plan: No change from initial note. Assessment: Vital Signs/I&O: Vital Signs Date Time Temp Pulse Resp B/P (MAP) Pulse Ox O2 Delivery O2 Flow Rate FiO2 12/29/20 07:42 91 136/81 12/29/20 05:46 97.2 18 99 Room Air I & O 12/28/20 12/28/20 12/29/20 15:00 23:00 07:00 Intake Total 840 ml 360 ml Balance 840 ml 360 ml Current Medications: Meds: Current Medications Medications (Trade) Dose Ordered Sig/Ashish Route PRN Reason Start Time Stop Time Status Last Admin Dose Admin Olanzapine (ZyPREXA ZYDIS) 2.5 mg PRN Q2HR PRN PO PSYCHOSIS 12/10/20 22:45 12/28/20 13:12 Acetaminophen (Tylenol) 650 mg PRN Q6HRS PRN PO MILD PAIN / TEMP > 100.3'F 12/10/20 23:45 12/26/20 21:01 Multi-Ingredient Ointment (Analgesic [place]) 1 malik PRN QID PRN TP MUSCLE PAIN 12/10/20 23:45 Al Hydroxide/Mg Hydroxide (Mylanta Plus Xs) 15 ml PRN AFTMEALHC PRN PO DYSPEPSIA 12/10/20 23:45 Magnesium Hydroxide (Milk Of Magnesia) 2,400 mg PRN QHS PRN PO CONSTIPATION 12/10/20 23:45 12/13/20 07:42 Galantamine Hydrobromide (Razadyne Er) 24 mg DAILY PO 12/11/20 09:00 12/29/20 07:41 Isosorbide Mononitrate (Imdur) 30 mg DAILY PO 12/11/20 09:00 12/29/20 07:42 Memantine (Namenda) 10 mg BID PO 12/11/20 09:00 12/29/20 07:42 Quetiapine Fumarate (SEROquel) 75 mg QHS PO 12/11/20 21:00 12/14/20 17:18 DC 12/13/20 20:22 Atorvastatin Calcium (Lipitor) 40 mg QHS PO 12/11/20 21:00 12/28/20 20:57 Pantoprazole Sodium (Protonix) 40 mg DAILYAC PO 12/11/20 07:30 12/29/20 07:42 Mirtazapine (Remeron) 7.5 mg QHS PO 12/11/20 21:00 12/12/20 17:36 DC 12/11/20 20:35 Trazodone HCl (Desyrel) 50 mg PRN QHS PRN PO INSOMNIA, MAY REPEAT X1 12/11/20 18:30 12/18/20 22:02 Mirtazapine (Remeron) 15 mg QHS PO 12/12/20 21:00 12/19/20 17:26 DC 12/18/20 20:24 Quetiapine Fumarate (SEROquel) 100 mg QHS PO 12/14/20 21:00 12/22/20 19:24 DC 12/21/20 20:53 Amitriptyline HCl (Elavil) 25 mg QHS PO 12/19/20 21:00 12/28/20 20:57 Sertraline HCl (Zoloft) 25 mg DAILY PO 12/20/20 09:00 12/22/20 09:00 DC 12/22/20 08:48 Sertraline HCl (Zoloft) 50 mg DAILY PO 12/23/20 09:00 12/27/20 18:27 DC 12/27/20 07:50 Quetiapine Fumarate (SEROquel) 50 mg HS PO 12/22/20 21:00 12/28/20 20:57 Cephalexin HCl (Keflex) 500 mg TID PO 12/25/20 21:00 12/30/20 21:00 12/29/20 07:41 Sertraline HCl (Zoloft) 75 mg DAILY PO 12/28/20 09:00 12/29/20 07:42 Current Medications Medications (Trade) Dose Ordered Sig/Ashish Route PRN Reason Start Time Stop Time Status Last Admin Dose Admin Sertraline HCl (Zoloft) 75 mg DAILY PO 12/28/20 09:00 12/29/20 07:42 I have reviewed the current psychotropics carefully including drug interactions. Risk benefit ratio favors no change other than as noted in my dictated progress note. Diagnosis: Problems: (1) Dementia with behavioral disturbance (2) Impulse control disorder, unspecified (3) Anxiety disorder, unspecified (4) Dementia, vascular, with depression (5) Dementia, vascular, with delusions (6) Dementia in Alzheimer's disease with depression (7) Dementia in Alzheimer's disease with delusions (8) Major neurocognitive disorder ION NAVARRETE MD Dec 29, 2020 08:50
--- NOTE | 2020-12-29 10:34 | NUR ---
Patient in room at time of assessment. Patient is alert but very confused and forgetful. Patient is disorganized. Patient is due to leave today to a facility. Patient has no complaints. Patient cooperates and takes medications crushed in yogurt with no problems. No further concerns at this time.
--- NOTE | 2020-12-29 11:31 | NUR ---
Transition Record was faxed to follow-up provider with the following elements: Reason for admission, procedures, tests, principal diagnosis, pending studies, patient instructions, 27/05 contact information for unit, phone number to obtain pending test results, plan for follow-up care, physician follow-up, advanced directive information, and medication list with dose, duration and instructions. This information was included in the following documents: History and physical, lab results, study results, progress notes, social work planning form, DC instruction form, patient visit summary, and medication reconciliation form. Date & time record faxed:12/29/20 [id number] Record faxed to:[phone] Record discussed with/ report given to: Chetna was left a message that I have called 2 times to give report to facility and no one seems to know who I should talk to. I left message with pesticide use medical coordinator so I can give report to them.
--- NOTE | 2020-12-29 13:33 | NUR ---
Spoke to Rebecca at patient facility and gave her report on patient. They will call with any questions.
--- NOTE | 2020-12-29 21:16 | PDOC ---
Exam Note: Jaquan Note: Please also refer to the separate dictated note~for this date of service dictated separately.~Patient seen individually. Discussed the patient with Nursing staff reviewed the chart.~Reviewed interim history and current functioning. Reviewed vital signs,~Labs/ Radiology~and current medications noted below. Continue current treatment with the changes noted in the dictated addendum note Assessment: Vital Signs/I&O: Vital Signs Date Time Temp Pulse Resp B/P (MAP) Pulse Ox O2 Delivery O2 Flow Rate FiO2 12/29/20 07:42 91 136/81 12/29/20 05:46 97.2 18 99 Room Air I & O 12/28/20 12/28/20 12/29/20 15:00 23:00 07:00 Intake Total 840 ml 360 ml Balance 840 ml 360 ml Current Medications: Meds: Current Medications Medications (Trade) Dose Ordered Sig/Ashish Route PRN Reason Start Time Stop Time Status Last Admin Dose Admin Olanzapine (ZyPREXA ZYDIS) 2.5 mg PRN Q2HR PRN PO PSYCHOSIS 12/10/20 22:45 12/29/20 13:34 DC 12/28/20 13:12 Acetaminophen (Tylenol) 650 mg PRN Q6HRS PRN PO MILD PAIN / TEMP > 100.3'F 12/10/20 23:45 12/29/20 13:34 DC 12/26/20 21:01 Multi-Ingredient Ointment (Analgesic Republic) 1 malik PRN QID PRN TP MUSCLE PAIN 12/10/20 23:45 12/29/20 13:34 DC Al Hydroxide/Mg Hydroxide (Mylanta Plus Xs) 15 ml PRN AFTMEALHC PRN PO DYSPEPSIA 12/10/20 23:45 12/29/20 13:34 DC Magnesium Hydroxide (Milk Of Magnesia) 2,400 mg PRN QHS PRN PO CONSTIPATION 12/10/20 23:45 12/29/20 13:34 DC 12/13/20 07:42 Galantamine Hydrobromide (Razadyne Er) 24 mg DAILY PO 12/11/20 09:00 12/29/20 13:34 DC 12/29/20 07:41 Isosorbide Mononitrate (Imdur) 30 mg DAILY PO 12/11/20 09:00 12/29/20 13:34 DC 12/29/20 07:42 Memantine (Namenda) 10 mg BID PO 12/11/20 09:00 12/29/20 13:34 DC 12/29/20 07:42 Quetiapine Fumarate (SEROquel) 75 mg QHS PO 12/11/20 21:00 12/14/20 17:18 DC 12/13/20 20:22 Atorvastatin Calcium (Lipitor) 40 mg QHS PO 12/11/20 21:00 12/29/20 13:34 DC 12/28/20 20:57 Pantoprazole Sodium (Protonix) 40 mg DAILYAC PO 12/11/20 07:30 12/29/20 13:34 DC 12/29/20 07:42 Mirtazapine (Remeron) 7.5 mg QHS PO 12/11/20 21:00 12/12/20 17:36 DC 12/11/20 20:35 Trazodone HCl (Desyrel) 50 mg PRN QHS PRN PO INSOMNIA, MAY REPEAT X1 12/11/20 18:30 12/29/20 13:34 DC 12/18/20 22:02 Mirtazapine (Remeron) 15 mg QHS PO 12/12/20 21:00 12/19/20 17:26 DC 12/18/20 20:24 Quetiapine Fumarate (SEROquel) 100 mg QHS PO 12/14/20 21:00 12/22/20 19:24 DC 12/21/20 20:53 Amitriptyline HCl (Elavil) 25 mg QHS PO 12/19/20 21:00 12/29/20 13:34 DC 12/28/20 20:57 Sertraline HCl (Zoloft) 25 mg DAILY PO 12/20/20 09:00 12/22/20 09:00 DC 12/22/20 08:48 Sertraline HCl (Zoloft) 50 mg DAILY PO 12/23/20 09:00 12/27/20 18:27 DC 12/27/20 07:50 Quetiapine Fumarate (SEROquel) 50 mg HS PO 12/22/20 21:00 12/29/20 13:34 DC 12/28/20 20:57 Cephalexin HCl (Keflex) 500 mg TID PO 12/25/20 21:00 12/29/20 13:34 DC 12/29/20 07:41 Sertraline HCl (Zoloft) 75 mg DAILY PO 12/28/20 09:00 12/29/20 13:34 DC 12/29/20 07:42 I have reviewed the current psychotropics carefully including drug interactions. Risk benefit ratio favors no change other than as noted in my dictated progress note. Diagnosis: Problems: (1) Dementia with behavioral disturbance (2) Impulse control disorder, unspecified (3) Anxiety disorder, unspecified (4) Dementia, vascular, with depression (5) Dementia, vascular, with delusions (6) Dementia in Alzheimer's disease with depression (7) Dementia in Alzheimer's disease with delusions (8) Major neurocognitive disorder ION NAVARRETE MD Dec 29, 2020 21:16
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
== END 2020-12-29 11:00 | DRG 57 ==
LOC: GEROPSY 21:00
PROVIDERS: ADMIT Psychiatry & Neurology Psychiatry; ATTEND Psychiatry & Neurology Psychiatry
DX: G30.9 Alzheimer's disease, unspecified (principal); F01.51 Vascular dementia, unspecified severity, with behavioral disturbance; N39.0 Urinary tract infection, site not specified; F02.81 Dementia in other diseases classified elsewhere, unspecified severity, with behavioral disturbance; E11.51 Type 2 diabetes mellitus with diabetic peripheral angiopathy without gangrene; E78.5 Hyperlipidemia, unspecified; F32.9 Major depressive disorder, single episode, unspecified; F41.9 Anxiety disorder, unspecified; F63.9 Impulse disorder, unspecified; I10 Essential (primary) hypertension; J43.9 Emphysema, unspecified; L08.9 Local infection of the skin and subcutaneous tissue, unspecified; Z20.822 Contact with and (suspected) exposure to COVID-19; Z66 Do not resuscitate; Z79.899 Other long term (current) drug therapy; Z85.038 Personal history of other malignant neoplasm of large intestine; K21.9 Gastro-esophageal reflux disease without esophagitis; Z91.83 Wandering in diseases classified elsewhere
CPT/HCPCS: 36415; 71046; 80053; 80061; 82306; 82607; 83036; 83540; 83550; 83735; 84436; 84443; 84480; 84550; 85025; 85379; 86592; 93005; U0003; 97530